=== PATIENT | female | born 1935 | race Caucasian/White ===

== ENCOUNTER 2018-02-13 08:22 | Inpatient (IN) | payer MEDICARE ==
[~2018-02-13] VITALS: Ht 162.6 cm; Wt 85.7 kg
[2018-02-13] MEDS ORDERED: SODIUM CHLORIDE 0.9% 1000ML 1,000 ML IV SCH (08:25)
[2018-02-13] MEDS ORDERED: IPRATROPIUM BROMIDE 0.02% 2.5 ML NEB NEB STA (08:25)
[2018-02-13] MEDS ORDERED: ALBUTEROL SULF 0.083% NEB SOLN 3 ML NEB NEB STA (08:25)
--- OUTSIDE RECORDS SUMMARY | 2018-02-13 08:25 | XMS REPORT | Summary of Care ---
Author Organization Unknown Address Unknown Phone Unavailable Encounter HQ Encntr_umesh(FIN) [id number] Date(s): 03/28/14 - 03/28/14 [facility] [address] Discharge Disposition: ED Registered In Error Physician Attending: Harris Davey MD Reason for Visit Elevated blood pressure Problem List Condition Effective Dates Status Health Status Informant HTN Active (hypertension)(Confi rmed) Pulmonary Resolved embolism(Confirmed) Allergies, Adverse Reactions, Alerts Substance Reaction Severity Status sulfa drugs Active Medications No data available for this section Medications Administered During Your Visit No data available for this section Immunizations No data available for this section Social History Social History Type Response Smoking Status Never smoker, Exposure to Tobacco Smoke None, Cigarette Smoking Last 365 Days No, Reg Smoking Cessation Counseling No
--- OUTSIDE RECORDS SUMMARY | 2018-02-13 08:25 | XMS REPORT | Summary of Care ---
Author Organization Unknown Address Unknown Phone Unavailable Encounter HQ Linkr_umesh(BINDU) [id number] Date(s): 02/28/14 - 02/28/14 [facility] [address] Discharge Disposition: Home Physician Attending: Fernando Estrada MD Physician_Referring: Fernando sEtrada MD Reason for Visit SPLIT [id number] Problem List No data available for this section Allergies, Adverse Reactions, Alerts No data available for this section Medications No data available for this section Medications Administered During Your Visit No data available for this section Immunizations No data available for this section
--- OUTSIDE RECORDS SUMMARY | 2018-02-13 08:25 | XMS REPORT | Summary of Care ---
Author Organization Unknown Address Unknown Phone Unavailable Encounter HQ Encntr_alitony(FIN) [id number] Date(s): 06/13/14 - 06/13/14 [facility] [address] [place] [address] Discharge Disposition: Home Physician Attending: Fernando Estrada MD Physician_Referring: Fernando Estrada MD Vital Signs No data available for this section Problem List Condition Effective Dates Status Health Status Informant HTN Active (hypertension)(Confi rmed) Pulmonary Resolved embolism(Confirmed) Allergies, Adverse Reactions, Alerts Substance Reaction Severity Status sulfa drugs Active Medications No data available for this section Results No data available for this section Immunizations No data available for this section Procedures No data available for this section Social History Social History Type Response Smoking Status Never smoker; Exposure to Tobacco Smoke None; Cigarette Smoking Last 365 Days No; Reg Smoking Cessation Counseling No Assessment and Plan No data available for this section
--- OUTSIDE RECORDS SUMMARY | 2018-02-13 08:25 | XMS REPORT | Summary of Care ---
Author Organization Unknown Address Unknown Phone Unavailable Encounter HQ Encntr_alias(FIN) [id number] Date(s): 03/28/14 - 03/28/14 [facility] [address] Discharge Disposition: Home Physician Attending: Fernando Estrada MD Physician_Referring: Fernando Estrada MD Reason for Visit [id number] Problem List Condition Effective Dates Status Health [...]
--- OUTSIDE RECORDS SUMMARY | 2018-02-13 08:25 | XMS REPORT | Continuity of Care Document ---
Author Author [facility] Interface Address Unknown Phone Unavailable Problems Problem Status Onset Date Classification Date Reported Comments Source [id number] Active 06/05/2014 [facility] ELEVATED BLOOD PRESSURE Active 03/28/2014 [facility] Discharge Diagnosis: Hypertension 03/28/2014 03/31/2014 [facility] SPLIT [id number] Active 02/08/2014 [facility] 415.19 ACUTE PULMONARY EMBOLISM Active 12/14/2013 [facility] HTN (<span ID="[id number]</span>) Active Problem 06/15/2014 [facility] Pulmonary embolism Resolved Problem 06/15/2014 [facility] Medications Medication Details Route Status Patient Instructions Ordering Provider Order Date Source Metoprolol Tartrate 25 mg oral tablet 25 mg=1 tab, PO, Daily, Please hold this medication if your systolic BP is less than 160, # 30 tab, 0 Refill(s)Special Instructions: Please hold this medication if your systolic BP is less than 160 Active 03/29/2014 [facility] Metoprolol 5 mg, 5 mL, Route: IVP, Drug form: INJ, ONCE, Dosing Weight 101.818, kg, Priority: STAT, Start date: 03/28/14 23:51:00, Stop date: 03/28/14 23:51:00Notes: (Same as: Lopressor) Push over 2 minutes No Longer Active 03/29/2014 [facility] Nitroglycerin 0.4 mg, 1 tab, Route: SL, Drug form: TAB, Q5Min, Dosing Weight 101.818, kg, PRN Chest Pain, Start date: 03/28/14 23:41:00, Duration: 3 doses or times, Stop date: Limited # of timesNotes: (Same as:Nitroquick, Nitrostat) "Do Not Crush" Sublingual tablet No Longer Active 03/29/2014 [facility] aspirin 324 mg, 4 tab, Route: PO, Drug form: CHEWTAB, ONCE, Dosing Weight 101.818, kg, Priority: STAT, Start date: 03/28/14 23:41:00, Stop date: 03/28/14 23:41:00Notes: Take with food. No Longer Active 03/29/2014 [facility] Saline Flush 0.9% 10 mL, Route: IVP, Drug Form: INJ, Dosing Weight 101.818, kg, PRN, PRN Line Flush, Start date: 03/28/14 23:41:00, Duration: 30 day, Stop date: 04/27/14 23:40:00Notes: (Same as: BD Posiflush) No Longer Active 03/29/2014 [facility] Sodium Chloride 0.154 MEQ/ML Injectable Solution 1,000 mL, 1000 ml/hr, Infuse Over: 1 hr, Route: IV, 1,000, Drug form: INJ, ONCE, Priority: STAT, Dosing Weight 101.818 kg, Start date: 03/28/14 23:41:00, Duration: 1 doses or times, Stop date: 03/28/14 23:41:00 No Longer Active 03/29/2014 [facility] Allergies, Adverse Reactions, Alerts Substance Category Reaction Severity Reaction type Status Date Reported Comments Source sulfa drugs Assertion Drug allergy Active [facility] Immunizations Immunization Date Given Site Status Last Updated Comments Source Results Order Name Results Value Reference Range Date Interpretation Comments Source CARDIAC ENZYMES CK MB Index 2.5 0.0 - 2.5 03/29/2014 [facility] CARDIAC ENZYMES CK MB 4.5 ng/mL 0.5 - 3.6 03/29/2014 [facility] CARDIAC ENZYMES Total CK 177 unit/L 12 - 191 03/29/2014 [facility] CARDIAC ENZYMES Troponin-I null 0.00 - 0.40 03/29/2014 [facility] CHEM PANEL eGFR 82 mL/min/1.73m2 03/29/2014 1Result Comment: The eGFR is calculated using the CKD-EPI formula. In most young, healthy individuals the eGFR will be >90 mL/min/1.73m2. The eGFR declines with age. An eGFR of 60-89 may be normal in some populations, particularly the elderly, for whom the CKD-EPI formula has not been extensively validated. Use of the eGFR is not recommended in the following populations: Individuals with unstable creatinine concentrations, including patients and those with serious co-morbid conditions. Patients with extremes in muscle mass or diet. The data above are obtained from the National Kidney Disease Education Program (NKDEP) which additionally recommends that when the eGFR is used in patients with extremes of body mass index for purposes of drug dosing, the eGFR should be multiplied by the estimated BMI. [facility] CHEM PANEL AST 19 unit/L 0 - 37 03/29/2014 [facility] CHEM PANEL ALT 21 unit/L 0 - 65 03/29/2014 [facility] CHEM PANEL Alk Phos 71 unit/L 39 - 136 03/29/2014 [facility] CHEM PANEL Bili Total 0.5 mg/dL 0.2 - 1.3 03/29/2014 [facility] CHEM PANEL AGAP 9.7 meq/L 10.0 - 20.0 03/29/2014 [facility] CHEM PANEL Globulin 3.8 g/dL 2.0 - 4.0 03/29/2014 [facility] CHEM PANEL B/C Ratio 20 6 - 25 03/29/2014 [facility] CHEM PANEL A/G Ratio 1.0 0.7 - 1.6 03/29/2014 [facility] CHEM PANEL BUN 14 mg/dL 7 - 22 03/29/2014 [facility] CHEM PANEL Sodium Lvl 140 meq/L 135 - 145 03/29/2014 [facility] CHEM PANEL Chloride Lvl 106 meq/L 95 - 109 03/29/2014 [facility] CHEM PANEL Potassium Lvl 3.7 meq/L 3.5 - 5.1 03/29/2014 [facility] CHEM PANEL CO2 28 meq/L 24 - 32 03/29/2014 [facility] CHEM PANEL Albumin Lvl 3.7 g/dL 3.5 - 5.0 03/29/2014 [facility] CHEM PANEL Creatinine Lvl 0.7 mg/dL 0.5 - 1.4 03/29/2014 [facility] CHEM PANEL Total Protein 7.5 g/dL 6.4 - 8.4 03/29/2014 [facility] CHEM PANEL Calcium Lvl 9.6 mg/dL 8.5 - 10.5 03/29/2014 [facility] CHEM PANEL Glucose Lvl 88 mg/dL 70 - 99 03/29/2014 2Interpretive Data: Adult reference range values reflect the clinical guidelines of the [employer]. [facility] HEMATOLOGY Segs 55.6 % 45.0 - 75.0 03/29/2014 [facility] HEMATOLOGY Segs-Bands # 4.1 K/CMM 1.5 - 8.1 03/29/2014 [facility] HEMATOLOGY Lymphocytes # 2.5 K/CMM 1.0 - 5.5 03/29/2014 [facility] Monocytes 9.0 % 2.0 - 12.0 03/29/2014 [facility] Lymphocytes 32.8 % 20.0 - 40.0 03/29/2014 [facility] Monocytes # 0.7 K/CMM 0.0 - 0.8 03/29/2014 [facility] HEMATOLOGY Eosinophils # 0.1 K/CMM 0.0 - 0.5 03/29/2014 [facility] Basophils # 0.1 K/CMM 0.0 - 0.2 03/29/2014 [facility] Eosinophils 1.8 % 0.0 - 4.0 03/29/2014 [facility] Basophils 0.8 % 0.0 - 1.0 03/29/2014 [facility] Hct 45.9 % 36.0 - 48.0 03/29/2014 [facility] WBC 7.5 K/CMM 3.7 - 10.4 03/29/2014 [facility] RBC 4.75 M/CMM 4.20 - 5.40 03/29/2014 [facility] Hgb 15.4 g/dL 12.0 - 16.0 03/29/2014 [facility] MCV 96.7 fL 80.0 - 98.0 03/29/2014 [facility] Platelet 215 K/CMM 133 - 450 03/29/2014 [facility] MCH 32.5 pg 27.0 - 31.0 03/29/2014 [facility] MCHC 33.6 g/dL 32.0 - 36.0 03/29/2014 [facility] RDW 14.7 % 11.5 - 14.5 03/29/2014 [facility] MPV 8.7 fL 7.4 - 10.4 03/29/2014 [facility] Chest 1view Chest 1view EXAMINATION: Chest 1view CLINICAL HISTORY: Chest pain Since 12/18/2013, no important interval change has occurred. The lungs are clear of consolidation, pleural effusion, and pneumothorax. Mild bilateral basilar subsegmental atelectasis and scarring. Emphysema is suspected in the lung apices. The heart size remains mildly enlarged. SL:17 03/29/2014 - - Read by: Rj Sandoval MD Dictated Date/time: 03/29/14 00:03 Electronically Signed by: Rj Sandoval MD 03/29/14 00:04 FINAL REPORT [facility] Chest 2 views Chest 2 views HISTORY: Cough. Pulmonary embolism. Two views chest. No previous for comparison. IMPRESSION: Lungs are mildly hyperinflated. Consider underlying obstructive lung disease. Mild cardiomegaly without overt CHF. No pleural effusion or pneumothorax. SL:13 12/18/2013 - - Read by: Marcos Fink MD Dictated Date/time: 12/18/13 14:44 Electronically Signed by: Marcos Fink MD 12/18/13 14:44 FINAL REPORT [facility] Ext Lower Venous Doppler Bilat US Ext Lower Venous Doppler Bilat US HISTORY: Pulmonary embolism. Bilateral lower extremity venous Doppler ultrasound exam demonstrates normal compressibility and flow in the common femoral, superficial femoral and popliteal venous segments. Normal distal augmentation. IMPRESSION: No sonographic evidence for lower extremity DVT. SL:12/18/2013 - - Read by: Marcos Fink MD Dictated Date/time: 12/18/13 14:27 Electronically Signed by: Marcos Fink MD 12/18/13 14:28 FINAL REPORT [facility] Vital Signs Vital Sign Value Date Comments Source Heart Rate 55 03/29/2014 [facility] Respitory Rate 16 03/29/2014 [facility] Temperature Oral (F) 98.8 F 03/29/2014 [facility] Systolic (mm Hg) 175 03/29/2014 [facility] Diastolic (mm Hg) 92 03/29/2014 [facility] Respitory Rate 18 03/29/2014 [facility] Systolic (mm Hg) 206 03/29/2014 [facility] Heart Rate 71 03/29/2014 [facility] Diastolic (mm Hg) 99 03/29/2014 [facility] Temperature Oral (F) 99.7 F 03/29/2014 [facility] Heart Rate 80 03/29/2014 [facility] Respitory Rate 18 03/29/2014 [facility] Diastolic (mm Hg) 133 03/29/2014 [facility] Systolic (mm Hg) 258 03/29/2014 [facility] BMI Calculated 43.84 03/29/2014 [facility] Weight 101.818 03/29/2014 [facility] Height 152.4 cm 03/29/2014 [facility] Encounters Location Location Details Encounter Type Encounter Number Reason For Visit Attending Provider ADM Date DC Date Status Source [facility]patient [id number] Fernando Estrada 12/18/2013 12/19/2013 [facility] [id number] Fernando Estrada 03/01/2014 03/01/2014 [facility] Outpatient [id number] Fernando Estrada 03/29/2014 03/29/2014 [facility] [id number] Harris Davey 03/29/2014 03/29/2014 [facility] [id number] Harris Davey 03/29/2014 03/29/2014 [facility] Outpatient [id number] Fernando Estrada 06/14/2014 06/14/2014 [facility] Procedures Procedure Code Date Perfomer Comments Source
--- OUTSIDE RECORDS SUMMARY | 2018-02-13 08:25 | XMS REPORT | Summary of Care ---
Author Organization Unknown Address Unknown Phone Unavailable Encounter HQ Heribertontr_umesh(BINDU) [id number] Date(s): 12/18/13 - 12/18/13 [facility] [address] Discharge Disposition: Home Physician Attending: Fernando Estrada MD Physician_Referring: Fernando Estrada MD Reason for Visit 415.19 ACUTE PULMONARY EMBOLISM Problem List No data available for this section Allergies, Adverse Reactions, Alerts No data available for this section Medications No data available for this section Medications Administered During Your Visit No data available for this section Immunizations No data available for this section
--- OUTSIDE RECORDS SUMMARY | 2018-02-13 08:25 | XMS REPORT | Summary of Care ---
Author Organization Unknown Address Unknown Phone Unavailable Encounter HQ Godfrey(BINDU) [id number] Date(s): 03/28/14 - 03/29/14 [facility] [address] [address] - [facility] Discharge Diagnosis: Hypertension Discharge Disposition: Home Physician Attending: Harris Davey MD Reason for Visit ELEVATED BLOOD PRESSURE Vital Signs 1 2 3 Most recent to oldest [Reference Range]: 152.4 cm (03/28/14 10:50 PM) Height 98.8 DegF (03/29/14 1:40 AM) 99.7 DegF *HI* (03/28/14 10:50 PM) Temperature Oral [96.4-99.1 DegF] 175 mmHg *HI* (03/29/14 1:40 AM) 206 mmHg *HI* (03/29/14 12:54 AM) 258 mmHg *HI* (03/28/14 10:50 PM) Systolic Blood Pressure [90-140 mmHg] 92 mmHg *HI* (03/29/14 1:40 AM) 99 mmHg *HI* (03/29/14 12:54 AM) 133 mmHg *HI* (03/28/14 10:50 PM) Diastolic Blood Pressure [60-90 mmHg] 16 BRMIN (03/29/14 1:40 AM) 18 BRMIN (03/29/14 12:54 AM) 18 BRMIN (03/28/14 10:50 PM) Respiratory Rate [14-20 BRMIN] 55 bpm *LOW* (03/29/14 1:40 AM) 71 bpm (03/29/14 12:54 AM) 80 bpm (03/28/14 10:50 PM) Peripheral Pulse Rate [60-100 bpm] 101.818 kg (03/28/14 10:50 PM) Weight 43.84 m2 (03/28/14 10:50 PM) Body Mass Index Problem List Condition Effective Dates Status Health Status Informant HTN Active (hypertension)(Confi rmed) Pulmonary Resolved embolism(Confirmed) Allergies, Adverse Reactions, Alerts Substance Reaction Severity Status sulfa drugs Active Medications aspirin 324 mg, 4 tab, Route: PO, Drug form: CHEWTAB, ONCE, Dosing Weight 101.818, kg, P riority: STAT, Start date: 03/28/14 23:41:00, Stop date: 03/28/14 23:41:00 Notes: Take with food. Start Date: 03/28/14 Stop Date: 03/29/14 Status: Completed metoprolol 5 mg/5 ml INJ 5 mg, 5 mL, Route: IVP, Drug form: INJ, ONCE, Dosing Weight 101.818, kg, Priorit y: STAT, Start date: 03/28/14 23:51:00, Stop date: 03/28/14 23:51:00 Notes: (Same as: Lopressor)Push over 2 minutes Start Date: 03/28/14 Stop Date: 03/29/14 Status: Completed Metoprolol Tartrate 25 mg oral tablet 25 mg=1 tab, PO, Daily, Please hold this medication if your systolic BP is less than 160, # 30 tab, 0 Refill(s) Special Instructions: Please hold this medication if your systolic BP is less th an 160 Start Date: 03/28/14 Status: Ordered nitroglycerin 0.4 mg, 1 tab, Route: SL, Drug form: TAB, Q5Min, Dosing Weight 101.818, kg, PRN Chest Pain, Start date: 03/28/14 23:41:00, Duration: 3 doses or times, Stop date : Limited # of times Notes: (Same as:Nitroquick, Nitrostat)"Do Not Crush" Sublingual tablet Start Date: 03/28/14 Stop Date: 03/29/14 Status: Discontinued Saline Flush 0.9% 10 mL, Route: IVP, Drug Form: INJ, Dosing Weight 101.818, kg, PRN, PRN Line Flus h, Start date: 03/28/14 23:41:00, Duration: 30 day, Stop date: 04/27/14 23:40:00 Notes: (Same as: BD Posiflush) Start Date: 03/28/14 Stop Date: 03/29/14 Status: Discontinued Sodium Chloride 0.9% (Bolus) IV 1,000 mL, 1000 ml/hr, Infuse Over: 1 hr, Route: IV, 1,000, Drug form: INJ, ONCE, Priority: STAT, Dosing Weight 101.818 kg, Start date: 03/28/14 23:41:00, Durati on: 1 doses or times, Stop date: 03/28/14 23:41:00 Start Date: 03/28/14 Stop Date: 03/29/14 Status: Completed Results ELECTROLYTES Most recent to 1 oldest [Reference Range]: Sodium Lvl [135-145 140 mEq/L mEq/L] (03/29/14 12:00 AM) Potassium Lvl 3.7 mEq/L [3.5-5.1 mEq/L] (03/29/14 12:00 AM) Chloride Lvl [95-109 106 mEq/L mEq/L] (03/29/14 12:00 AM) CO2 [24-32 mEq/L] 28 mEq/L (03/29/14 12:00 AM) AGAP [10.0-20.0 9.7 mEq/L mEq/L] *LOW* (03/29/14 12:00 AM) CHEM PANEL Most recent to 1 oldest [Reference Range]: Creatinine Lvl 0.7 mg/dL [0.5-1.4 mg/dL] (03/29/14 12:00 AM) eGFR 82 mL/min/1.73m2 1 *NA* (03/29/14 12:00 AM) BUN [7-22 mg/dL] 14 mg/dL (03/29/14 12:00 AM) B/C Ratio [6-25] 20 (03/29/14 12:00 AM) Glucose Lvl [70-99 88 mg/dL 2 mg/dL] (03/29/14 12:00 AM) Total Protein 7.5 g/dL [6.4-8.4 g/dL] (03/29/14 12:00 AM) Albumin Lvl [3.5-5.0 3.7 g/dL g/dL] (03/29/14 12:00 AM) Globulin [2.0-4.0 3.8 g/dL g/dL] (03/29/14 12:00 AM) A/G Ratio [0.7-1.6] 1.0 (03/29/14 12:00 AM) Calcium Lvl 9.6 mg/dL [8.5-10.5 mg/dL] (03/29/14 12:00 AM) ALT [0-65 unit/L] 21 unit/L (03/29/14 12:00 AM) AST [0-37 unit/L] 19 unit/L (03/29/14 12:00 AM) Alk Phos [39-136 71 unit/L unit/L] (03/29/14 12:00 AM) Bili Total [0.2-1.3 0.5 mg/dL mg/dL] (03/29/14 12:00 AM) 1Result Comment: The eGFR is calculated using [...] from the National Kidney Disease Education Program ( NKDEP) which additionally recommends that when the eGFR is used in patients with extremes of body mass index for purposes of drug dosing, the eGFR should be mul tiplied by the estimated BMI. 2Interpretive Data: Adult reference range values reflect the clinical guidelines of the [place] [employer]. CARDIAC ENZYMES Most recent to 1 oldest [Reference Range]: Total CK [12-191 177 unit/L unit/L] (03/29/14 12:00 AM) CK MB [0.5-3.6 4.5 ng/mL ng/mL] *HI* (03/29/14 12:00 AM) CK MB Index 2.5 [0.0-2.5] (03/29/14 12:00 AM) Troponin-I <0.02 ng/mL [0.00-0.40 ng/mL] (03/29/14 12:00 AM) HEMATOLOGY Most recent to 1 oldest [Reference Range]: WBC [3.7-10.4 K/CMM] 7.5 K/CMM (03/29/14 12:00 AM) RBC [4.20-5.40 4.75 M/CMM M/CMM] (03/29/14 12:00 AM) Hgb [12.0-16.0 g/dL] 15.4 g/dL (03/29/14 12:00 AM) Hct [36.0-48.0 %] 45.9 % (03/29/14 12:00 AM) MCV [80.0-98.0 fL] 96.7 fL (03/29/14 12:00 AM) MCH [27.0-31.0 pg] 32.5 pg *HI* (03/29/14 12:00 AM) MCHC [32.0-36.0 33.6 g/dL g/dL] (03/29/14 12:00 AM) RDW [11.5-14.5 %] 14.7 % *HI* (03/29/14 12:00 AM) Platelet [133-450 215 K/CMM K/CMM] (03/29/14 12:00 AM) MPV [7.4-10.4 fL] 8.7 fL (03/29/14 12:00 AM) Segs [45.0-75.0 %] 55.6 % (03/29/14 12:00 AM) Lymphocytes 32.8 % [20.0-40.0 %] (03/29/14 12:00 AM) Monocytes [2.0-12.0 9.0 % %] (03/29/14 12:00 AM) Eosinophils [0.0-4.0 1.8 % %] (03/29/14 12:00 AM) Basophils [0.0-1.0 0.8 % %] (03/29/14 12:00 AM) Segs-Bands # 4.1 K/CMM [1.5-8.1 K/CMM] (03/29/14 12:00 AM) Lymphocytes # 2.5 K/CMM [1.0-5.5 K/CMM] (03/29/14 12:00 AM) Monocytes # [0.0-0.8 0.7 K/CMM K/CMM] (03/29/14 12:00 AM) Eosinophils # 0.1 K/CMM [0.0-0.5 K/CMM] (03/29/14 12:00 AM) Basophils # [0.0-0.2 0.1 K/CMM K/CMM] (03/29/14 12:00 AM) Medications Administered During Your Visit No data available for this section Immunizations No data available for this section Social History Social History Type Response Smoking Status Never smoker, Exposure to Tobacco Smoke None, Cigarette Smoking Last 365 Days No, Reg Smoking Cessation Counseling No
[2018-02-13] MEDS ORDERED: ONDANSETRON HCL INJ 2 MG/ML VIAL IV PRN ×3 (08:30→13:15)
[2018-02-13] MEDS ORDERED: CEFEPIME HCL 2 GM VIAL IV ONE (09:00)
[2018-02-13] MEDS ORDERED: FAMOTIDINE 20 MG/2 ML VIAL IV ONE (09:00)
[2018-02-13 09:10] LABS: ABG PH 7.43 (7.31-7.41)
[2018-02-13 09:11] LABS: ABG PCO2 37 mmHg (41-51)
[2018-02-13 09:12] LABS: ABG HCO3 25 mmol/L (23-28); ABG PO2 45 mmHg (80-105)
[2018-02-13 09:26] LABS: BASOPHILS % 0.2 % (0.0-1.0); EOSINOPHILS # (AUTO) 0.1 (0.0-0.4); EOSINOPHILS % 0.4 % (0.0-6.0); HEMATOCRIT 43.7 % (34.2-44.1); HEMOGLOBIN 14.5 g/dL (12.0-16.0); LYMPHOCYTES # (AUTO) 1.1 (1.0-3.2); LYMPHOCYTES % 9.1 % (18.0-39.1); MEAN CORPUSCULAR HEMOGLOBIN 31.7 pg (28-32); MEAN CORPUSCULAR HGB CONC 33.2 g/dL (31-35); MEAN CORPUSCULAR VOLUME 95.4 fL (81-99); MONOCYTES # (AUTO) 1.4 (0.2-0.8); MONOCYTES % 11.4 % (4.4-11.3); NEUTROPHILS # (AUTO) 9.7 (2.1-6.9); NEUTROPHILS % 78.4 % (38.7-80.0); PLATELET COUNT 167 x10e3/uL (140-360); RED BLOOD COUNT 4.58 x10e6/uL (3.6-5.1); RED CELL DISTRIBUTION WIDTH 15.5 % (11.7-14.4)
--- NOTE | 2018-02-13 09:37 | Diagnostic Imaging Report ---
Examination: Single AP view of the chest. COMPARISON: None. INDICATION: Shortness of breath, small IMPRESSION: 1. Lines and Tubes: None 2. Lungs are well-inflated. Mild bilateral perihilar interstitial opacities, likely reflecting mild interstitial edema. Patchy opacity in the left mid to lower left lung, which may reflect atelectasis or less likely a contusion. 3. Cardiomediastinal silhouette is normal. Central pulmonary venous congestion. 4. No acute bony abnormalities in this limited view.. Signed by: Dr. Juan Cota M.D. on 02/13/2018 9:34 AM
[2018-02-13 09:43] LABS: ALBUMIN 2.6 g/dL (3.5-5.0); ALBUMIN/GLOBULIN RATIO 0.6 (0.8-2.0); ANION GAP 13.9 mmol/L (8-16); CALCIUM 10.4 mg/dL (8.4-10.2); CREATININE, SERUM 1.03 mg/dL (0.57-1.11); POTASSIUM 3.9 mmol/L (3.5-5.1)
[2018-02-13 10:23] LABS: CLARITY,URINE TURBID (CLEAR); COLOR,URINE BROWN (YELLOW); LEUKOCYTE ESTERASE ,URINE 2+ (NEGATIVE)
[2018-02-13 10:24] LABS: BACTERIA,URINE MODERATE /HPF; BILIRUBIN,URINE 2+ (NEGATIVE); KETONES,URINE TRACE (NEGATIVE); NITRITE,URINE POSITIVE (NEGATIVE); PROTEIN,URINE DIPSTICK 3+ (NEGATIVE); RBC,URINE >50 /HPF (0-5); URINE UROBILINOGEN 1 mg/dL (0.2 - 1); WBC,URINE (MAN) >50 /HPF (0-5)
[2018-02-13 10:25] LABS: AMORPHOUS SEDIMENT,URINE MODERATE (FEW); EPITHELIAL CELLS,URINE FEW /LPF
[2018-02-13] MEDS ORDERED: SODIUM CHLORIDE 0.9% 100 ML 100 ML ONE ×2 (10:48→14:09)
[2018-02-13] MEDS ORDERED: IOPAMIDOL 370 MG/ML 200 ML INFUS..BTL INJ ONE ×3 (10:49→22:52)
[2018-02-13] MEDS ORDERED: OCUVITE SOFTGE1 EACH PO (11:05)
[2018-02-13] MEDS ORDERED: VITAMIN B-121000 MCG PO (11:05)
[2018-02-13] MEDS ORDERED: COQ-10100 MG PO (11:05)
[2018-02-13] MEDS ORDERED: ASPIR 8181 MG PO (11:05)
[2018-02-13] MEDS ORDERED: HYDRALAZINE HCL25 MG PO (11:05)
[2018-02-13] MEDS ORDERED: LOSARTAN POTASS25 MG PO (11:05)
[2018-02-13] MEDS ORDERED: HAIR, SKIN & N1 EACH PO (11:05)
[2018-02-13] MEDS ORDERED: ZETIA10 MG PO (11:05)
[2018-02-13] MEDS ORDERED: CENTRUM COMPLE1 EACH PO (11:05)
--- NOTE | 2018-02-13 12:53 | Diagnostic Imaging Report ---
EXAMINATION: CT of the chest with contrast, PE protocol. TECHNIQUE: Spiral CT images of the chest were performed from the lung apices through the level of the adrenal glands after the IV administration of 100 cc of Isovue 370. Thin section reconstructions were obtained with special concentration on the pulmonary arteries. Coronal and sagittal reformatted images were obtained. COMPARISON: <none> CLINICAL HISTORY:Decreased O2 saturation DISCUSSION: Exam limited by breathing motion artifact. Lungs: No filling defects are identified in the main, right or left pulmonary arteries to their segmental levels, to suggest pulmonary embolism. Mild bilateral upper lobe centrilobular emphysematous changes. Linear opacities in bilateral lower lobes, lingula and inferior right middle lobe likely represent subsegmental atelectasis or scarring. Mild increased attenuation/ground glass opacities in the central aspect of the upper lobes (coronal image 38). No consolidation or masses. No nodules. Airways: Airways are clear, without endobronchial lesions. Pleura: <There is no evidence of pleural effusion or pneumothorax.> Heart and mediastinum: Moderate cardiomegaly. Atherosclerotic calcification of the coronary arteries and thoracic aorta. The aorta is nonaneurysmal. Main pulmonary artery is enlarged, measuring 3.2 cm. Lymph nodes: No mediastinal, hilar or axillary adenopathy. Abdomen: The visualized portions of the liver, spleen and left kidney are unremarkable. Fused thickening of the adrenal glands, without focal lesions. Reflux of contrast into the IVC and hepatic veins. Bones and soft tissues: No aggressive lytic lesions. Generalized osteopenia. Multilevel degenerative disc changes in the thoracic spine. Age indeterminate anterior wedge deformity of the T5 vertebral body (sagittal image 58). Soft tissues are unremarkable. IMPRESSION: 1. No CT evidence of pulmonary embolism. 2. Mild increased attenuation/ground glass opacity in the central aspect of the upper lobes. This may reflect interstitial edema in the setting of moderate cardiomegaly and pulmonary hypertension. A relatively, interstitial lung disease is also considered, given the emphysematous changes. 3. Bilateral lower lobe, lingula and right middle lobe scarring versus subsegmental atelectasis. No consolidation. 4. Reflux of contrast into the IVC and hepatic veins suggesting right ventricular dysfunction. 5. Enlarged main pulmonary artery, suggesting pulmonary hypertension. Signed by: Dr. Juan Cota M.D. on 02/13/2018 12:50 PM
[2018-02-13] MEDS ORDERED: CEFEPIME HCL 2 GM VIAL IV SCH (13:15)
[2018-02-13] MEDS ORDERED: ACETAMINOPHEN 325 MG TAB PO PRN (13:15)
[2018-02-13] MEDS ORDERED: DIPHENHYDRAMINE HCL INJ 50 MG/ML VIAL IV PRN (13:15)
[2018-02-13] MEDS ORDERED: MORPHINE SULFATE 2 MG/ML SYR IV PRN (13:15)
[2018-02-13] MEDS ORDERED: SODIUM CHLORIDE FLUSH 10 ML SYR INJ PRN ×2 (13:15)
[2018-02-13] MEDS ORDERED: ENOXAPARIN SODIUM INJ 100 MG/ML SYR SC SCH (13:15)
[2018-02-13] MEDS ORDERED: ALBUTEROL/IPRATROPIUM 3 ML NEB NEB PRN (13:15)
[2018-02-13] MEDS ORDERED: ENALAPRILAT IV INJ 1.25 MG/ML VIAL IV PRN (13:15)
[2018-02-13] MEDS ORDERED: IBUPROFEN 200 MG TAB PO PRN (13:15)
--- OUTSIDE RECORDS SUMMARY | 2018-02-13 13:36 | XMS REPORT ---
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 Allergies, Adverse Reactions, Alerts This patient has no known allergies or adverse reactions. Medications This patient has no known medications. Results Test Description Test Time Test Comments Text Results Atomic Results Result Comments CT CHEST W 2018-02-13 12:42:00 [facility] [address] [place] [address] Patient Name: YUMIKO GRANDA MR #: [id number] : 1935 Age/Sex: 82/F Req #: [id number] Adm Physician: Ordered by: MANNY SOTOMAYOR MD Report #: [id number] Location: ER Room/Bed: Procedure: [id number] CT/CT CHEST W Exam Date: 02/13/18 Exam Time: 1103 REPORT STATUS: Signed EXAMINATION: CT of the chest with contrast, PE protocol. Dwayne HURST: Spiral CT images of the chest were performed from the lung apices through the level of the adrenal glands after the IV administration of 100 cc of Isovue 370. Thin section reconstructions were obtained with special concentration on the pulmonary arteries. Coronal and sagittal reformatted images were obtained. COMPARISON: <none> CLINICAL HISTORY:Decreased O2 saturation DISCUSSION: Exam limited by breathing motion artifact. Lungs: No filling defects are identified in the main, right or left pulmonary arteries to their segmental levels, to suggest pulmonary embolism. Mild bilateral upper lobe centrilobular emphysematous changes. Linear opacities in bilateral lower lobes, lingula and inferior right middle lobe likely represent subsegmental atelectasis or scarring. Mild increased attenuation/ground glass opacities in the central aspect of the upper lobes (coronal image 38). No consolidation or masses. No nodules. Airways: Airways are clear, without endobronchial lesions. Pleura: <There is no evidence of pleural effusion or pneumothorax.> Heart and mediastinum: Moderate cardiomegaly. Atherosclerotic calcification of the coronary arteries and thoracic aorta. The aorta is nonaneurysmal. Main pulmonary artery is enlarged, measuring 3.2 cm. Lymph nodes: No mediastinal, hilar or axillary adenopathy. Abdomen: The visualized portions of the liver, spleen and left kidney are unremarkable. Fused thickening of the adrenal glands, without focal lesions. Reflux of contrast into the IVC and hepatic veins. Bones and soft tissues: No aggressive lytic lesions. Generalized osteopenia. Multilevel degenerative disc changes in the thoracic spine. Age indeterminate anterior wedge deformity of the T5 vertebral body (sagittal image 58). Soft tissues are unremarkable. IMPRESSION: 1. No CT evidence of pulmonary embolism. 2. Mild increased attenuation/ground glass opacity in the central aspect of the upper lobes. This may reflect interstitial edema in the setting of moderate cardiomegaly and pulmonary hypertension. A relatively, interstitial lung disease is also considered, given the emphysematous changes. 3. Bilateral lower lobe, lingula and right middle lobe scarring versus subsegmental atelectasis. No consolidation. 4. Reflux of contrast into the IVC and hepa tic veins suggesting right ventricular dysfunction. 5. Enlarged main pulmonary artery, suggesting pulmonary hypertension. Signed by: Dr. Devante Cota M.D. on 02/13/2018 12:50 PM Dictated By: DEVANTE COTA MD 1250 Transcribed By: JACKIE on 02/13/18 1250 COPY TO: MANNY SOTOMAYOR MD CHEST SINGLE (PORTABLE) 2018-02-13 09:33:00 [place] [address] Patient Name: YUMIKO GRANDA MR #: [id number] : 1935 Age/Sex: 82/F Req #: [id number] [facility] Physician: Ordered by: MANNY SOTOMAYOR MD Report #: [id number] Location: Room/Bed: Procedure: [id number] DX/CHEST SINGLE (PORTABLE) Exam Date: 02/13/18 Exam Time: 0853 REPORT STATUS: Signed Examination: Single AP view of the chest. COM PARISON: None. INDICATION: Shortness of breath, small IMPRESSION: 1. Lines and Tubes: None 2. Lungs are well-inflated. Mild bilateral perihilar interstitial opacities, likely reflecting mild interstitial edema. Patchy opacity in the left mid to lower left lung, which may reflect atelectasis or less likely a contusion. 3. Cardiomediastinal silhouette is normal. Central pulmonary venous congestion. 4. No acute bony abnormalities in this limited view.. Signed by: Dr. Devante Cota M.D. on 02/13/2018 9:34 AM Dictated By: DEVANTE COTA MD 3 Transcribed By: JACKIE on 02/13/18933 COPY TO: MANNY SOTOMAYOR MD
[2018-02-13] MEDS: METOPROLOL TARTRATE 25 MG TAB PO SCH (14:47)
[2018-02-13] MEDS: FAMOTIDINE 20 MG/2 ML VIAL IV SCH (14:53)
[2018-02-13] MEDS ORDERED: ASPIRIN 81 MG CHEW TAB PO ONE (15:00)
[2018-02-13] MEDS ORDERED: FUROSEMIDE INJ 10 MG/ML 4 ML VIAL IV ONE (15:00)
[2018-02-13 19:12] LABS: CREATINE KINASE MB 3.3 ng/mL (0-5.0)
[2018-02-13] MEDS: FUROSEMIDE INJ 10 MG/ML 4 ML VIAL IV SCH (19:30)
[2018-02-13] MEDS: CEFEPIME HCL 2 GM VIAL IV SCH (22:52)
[2018-02-14] MEDS: METOPROLOL TARTRATE 25 MG TAB PO SCH ×2 (02:55→15:13)
[2018-02-14 08:20] LABS: BASOPHILS % 0.3 % (0.0-1.0); EOSINOPHILS % 0.3 % (0.0-6.0); HEMATOCRIT 41.6 % (34.2-44.1); HEMOGLOBIN 13.7 g/dL (12.0-16.0); LYMPHOCYTES # (AUTO) 0.8 (1.0-3.2); LYMPHOCYTES % 5.5 % (18.0-39.1); MEAN CORPUSCULAR HEMOGLOBIN 31.6 pg (28-32); MEAN CORPUSCULAR HGB CONC 32.9 g/dL (31-35); MEAN CORPUSCULAR VOLUME 95.9 fL (81-99); MONOCYTES # (AUTO) 1.1 (0.2-0.8); MONOCYTES % 8.1 % (4.4-11.3); NEUTROPHILS # (AUTO) 11.6 (2.1-6.9); NEUTROPHILS % 84.1 % (38.7-80.0); RED BLOOD COUNT 4.34 x10e6/uL (3.6-5.1); RED CELL DISTRIBUTION WIDTH 15.4 % (11.7-14.4)
[2018-02-14 08:30] LABS: PLATELET COUNT 189 x10e3/uL (140-360)
[2018-02-14 08:35] LABS: ANION GAP 11.6 mmol/L (8-16); BLOOD UREA NITROGEN 37 mg/dL (7-26); BUN/CREATININE RATIO 46 (6-25); CARBON DIOXIDE 29 mmol/L (22-29); CHLORIDE 102 mmol/L (98-107); CREATININE, SERUM 0.81 mg/dL (0.57-1.11); EST GLOMERULAR FILTRATION RATE > 60 ML/MIN (60-); GLUCOSE 113 mg/dL (74-118); POTASSIUM 3.6 mmol/L (3.5-5.1); SODIUM 139 mmol/L (136-145)
[2018-02-14 08:50] LABS: CALCIUM 9.6 mg/dL (8.4-10.2)
[2018-02-14] MEDS: ENOXAPARIN SOD INJ 40 MG/0.4 ML SYR SC SCH (09:29)
[2018-02-14] MEDS: FAMOTIDINE 20 MG/2 ML VIAL IV SCH ×2 (09:29→17:54)
[2018-02-14] MEDS: FUROSEMIDE INJ 10 MG/ML 4 ML VIAL IV SCH (09:29)
[2018-02-14] MEDS: CEFEPIME HCL 2 GM VIAL IV SCH ×2 (09:31→21:44)
--- NOTE | 2018-02-14 10:19 | History and Physical ---
Ms. Zurita is an 82-year-old female with a history of hypertension and back pain that was brought to the emergency room yesterday. She is not very clear. She is a little confused. She is not very clear why she is in the emergency room. She thinks it is because she fell again. That is what she said. She was brought to the emergency room. PAST MEDICAL HISTORY: She has a history of hypertension and back pain. SOCIAL HISTORY: She does not smoke and she does not drink. ALLERGIES: NO KNOWN DRUG ALLERGIES. PAST SURGICAL HISTORY: She denies having any surgeries. PHYSICAL EXAMINATION GENERAL: She is awake. She is alert, but she is a little confused. She did not know she was at the hospital. VITALS: Temperature is 98, blood pressure 127/80. HEART: Regular rate. LUNGS: Clear to auscultation. ABDOMEN: Distended and soft. EXTREMITIES: No edema and no erythema. BLOOD WORK: White count is 13.78, hemoglobin is 13.7 and hematocrit 41.6. Potassium 3.6, creatinine 0.81, glucose 113. First set of cardiac enzymes negative. BNP is 1092. Urine shows more than 50 white blood cells. Influenza was negative. CT of the lung shows no evidence of pulmonary embolus, some interstitial edema with cardiomegaly and pulmonary hypertension, atelectasis, and pulmonary hypertension. PLAN: At the present time, is to admit the patient to the hospital with acute hypoxemic respiratory failure, CHF, changes in mental status, recurrent falls, probably UTI. We are going to get a neurology consult with Dr. Fisher. Cardiology consult Dr. Pagan. She is on cefepime 2 g IV every 12 hours. Continue IV antibiotics. We are going to continue to monitor culture results. Continue Lasix IV twice a day. Will admit her to the floor once we have a bed available. All of this was discussed with the patient. All questions were answered to satisfaction. Continue DVT and ulcer prophylaxis. Job#: [id number] BENJAMIN
[2018-02-14 10:31] LABS: CREATINE KINASE MB 2.2 ng/mL (0-5.0)
--- NOTE | 2018-02-14 10:52 | Consultation ---
DATE OF CONSULTATION: February 14, 2018 CARDIOLOGY CONSULTATION REASON FOR CONSULTATION: Chest pain. CONSULTING PHYSICIAN: Dr. Bustos HPI: This is an 82-year-old female that presented status post fall. According to the medical record, she was found with decreased mentation and shortness of breath. She was brought to the emergency room for evaluation. She has a history of dementia, and not able to verbalize any need or follow any command. She was found with BNP at 1092. Cardiology was consulted for CHF. She had chest x-ray done that showed patchy opacities on the left mid to the left lower lung. She also had a CT of chest done that showed no PE. Possible pulmonary hypertension. Troponin was borderline and EKG showed no S/T abnormalities. PAST MEDICAL HISTORY: Dementia, hypertension, hyperlipidemia and back pain. PAST SURGICAL HISTORY: Unknown. FAMILY HISTORY: Noncontributory. SOCIAL HISTORY: No smoking. No drinking. She lives at home with family. MEDICATIONS: See med list. ALLERGIES: SHE IS NOT ALLERGIC TO ANY MEDICATION. REVIEW OF SYSTEMS: Unable to obtain due to dementia. PHYSICAL EXAMINATION VITAL SIGNS: Temperature 97, heart rate 76, blood pressure 128/74, respirations 20, oxygen saturation 95% on 2 L nasal cannula. GENERAL: She is awake and alert, but confused. HEENT: Mucous membranes moist. NECK: Supple. LUNGS: Bilateral with decreased breath sounds. CARDIOVASCULAR: S1 and S2 present. ABDOMEN: Soft. NEUROLOGICAL: She is able to move extremities, but not able to verbalize any need. EXTREMITIES: Bilateral lower extremities with trace edema. LABS: Sodium 139, potassium 3.6, chloride 102, CO2 29, BUN 37, creatinine 0.81, glucose 113. White blood cells 13.7, hemoglobin 13, hematocrit 41.6, and platelets 189,000. IMPRESSION 1. Congestive heart failure, type unknown. 2. Urinary tract infection. 3. Dementia/altered mental status. 4. Borderline TROPONIN 5. Status post fall. 6. History of hypertension. 7. History of hyperlipidemia. 8. Hypoxemia. ASSESSMENT AND PLAN: She is pending an echocardiogram to assess the LV and the valve function. Due to the history of fall, will go ahead and get a bilateral carotid Doppler to rule out any occlusion. Will go ahead and continue diuretics, beta joanne and DEVON inhibitor. Further cardiac workup pending clinical cause. Thank you for the consultation. DICTATED BY JEREMIAH CRAFT NP Job#: [id number] BENJAMIN BROUSSARD
[2018-02-14 20:39] VITALS: BP 127/68
--- NOTE | 2018-02-14 22:03 | Consultation ---
DATE OF CONSULTATION: February 14, 2018 HISTORY OF PRESENT ILLNESS: Unfortunately, Ms. Zurita is severely encephalopathic. She is unable to provide any medical history. There are no family members available at bedside. Therefore, history is obtained from review of the electronic medical records. On the evening of February 13, 2018, the patient presented to the emergency center at [facility] status post fall with confusion and shortness of breath. Upon arrival in the emergency center, the patient was afebrile with a blood pressure 128/76 mmHg, a pulse of 96 beats per minute, a respiratory rate 20 breaths per minute, and a pulse oximetry of 80% on room air. Ms. Zurita's neurological examination was significant for a decreased level of alertness. Otherwise, the patient was reported to be oriented x3. No focal deficits were noted on her neurological examination. Initial laboratory data revealed the patient to be dehydrated. The CBC with differential and platelets revealed an elevated white blood cell count with a left shift. Ms. Zurita was found to be hypoxemic on an arterial blood gas. Findings on her urinalysis were highly suggestive of a urinary tract infection. While in the emergency center, the patient underwent an electrocardiogram, which revealed a normal sinus rhythm at 96 beats per minute with a left axis deviation. A chest x-ray was performed in the emergency center. There is no evidence of consolidation on the chest x-ray. However, there were findings suggestive of mild interstitial edema. A CT of the chest with contrast, PE protocol was performed as well. This study did not reveal a pulmonary embolus. Due to every unit in the hospital being at full capacity, Ms. Zurita remains in the emergency center. She has been admitted to [facility] as an inpatient and is awaiting an available floor bed. As stated above, Ms. Zurita was confused upon admission to the emergency center. Therefore, a neurology consultation was requested for further evaluation. REVIEW OF SYSTEMS: Unable to assess secondary to the patient being severely encephalopathic. PAST MEDICAL HISTORY: Hypertension, dyslipidemia, chronic back pain, and dementia. PAST SURGICAL HISTORY: Unknown. According to Dr. Bustos's note, the patient denied any prior surgical procedures. PAST HOSPITALIZATIONS: Unknown. FAMILY MEDICAL HISTORY: Unknown. According to the patient's demographic information, Ms. Zurita is a . She reportedly lives with family. The patient is retired. There is no documentation of current or prior tobacco, alcohol or recreational drug use. HOME MEDICATIONS 1. Aspirin 81 mg by mouth daily. 2. Vitamin B12 1000 mcg by mouth daily. 3. Zetia 10 mg by mouth daily. 4. Hydralazine 25 mg by mouth 3 times daily with meals. 5. Losartan 50 mg by mouth daily. 6. Multivitamin 1 tablet by mouth daily. 7. Coenzyme Q10 and 100 mg by mouth daily. 8. Ocuvite 2 capsules by mouth daily. ALLERGIES: NO KNOWN DRUG ALLERGIES. NO KNOWN FOOD ALLERGIES. NO KNOWN ALLERGIES TO LATEX. NO KNOWN ALLERGIES TO IODINE OR OTHER CONTRAST MATERIALS. PHYSICAL EXAMINATION VITAL SIGNS: Height 64 inches, weight 194 pounds, BMI 33.3 kg per meter squared, blood pressure 124/78 mmHg, pulse 81 beats per minute, respiratory rate 18 breaths per minute, oxygen saturation 99% on 5 L by nasal cannula. GENERAL: The patient is sleeping. Ms. Zurita is difficult to arouse and requires repeated verbal stimulation before she awakens. Obese. HEENT: Normocephalic, atraumatic. Pupils cannot be adequately assessed. Dry mucous membranes. NECK: Supple. No appreciable thyromegaly. No appreciable carotid bruits. CARDIOVASCULAR: S1, S2. Regular rate and rhythm. No murmurs, rubs or gallops. RESPIRATORY: Clear to auscultation bilaterally. No wheezes, rhonchi or rales. EXTREMITIES: The skin is warm and dry. No clubbing, cyanosis or edema. The posterior tibial and dorsalis pedis pulses are 1+ and symmetric. SKIN: No rashes or lesions. NEUROLOGIC Memory/Attention: The patient is sleeping. She arouses after repeated verbal stimulation. Ms. Zurita is not oriented to person, place, time or situation. Cranial Nerves: Cranial nerve I--not tested. Cranial. Cranial nerve II, III, IV, and --Pupils cannot be adequately assessed. Extraocular movements cannot be adequately assessed. There is no nystagmus. Cranial nerve VII--the face appears to be symmetric as are all facial movements. Cranial nerve VII--hearing is grossly intact to voice bilaterally. Cranial nerve IX, X--the soft palate elevates equally and symmetrically. Cranial nerve XII--the tongue protrudes midline and moves symmetrically from side to side. Strength: Bulk is normal. Ms. Zurita withdraws all extremities to peripheral noxious stimulation. Tone is normal. DTRs: Deep tendon reflexes are 2+ and symmetric at the triceps, biceps, brachioradialis, and patellas. Deep tendon reflexes are absent and symmetric at the Achilles. Plantar responses are flexor bilaterally. Sensation: Sensation is as per motor exam. Cerebellar: Unable to assess secondary to patient being severely encephalopathic. Gait: Unable to assess secondary to the patient being severely encephalopathic. Speech: Spontaneous speech is moderately dysarthric. Involuntary Movements: None. Pronator Drift: As per motor exam. LABORATORY DATA: The patient's initial comprehensive metabolic panel was significant for an elevated BUN of 49, estimated GFR 51, and BUN to creatinine ratio 48, a mildly elevated AST of 44, and low albumin and globulin levels. Creatine kinase 42, 33, 38. CK-MB 4.00, 3.30, 2.20. Troponin-I 0.344, 0.194, 0.098. B-natriuretic peptide 1092.2. Lactic acid 11.3. A 2nd basic metabolic panel is significant for an elevated BUN of 37 with an elevated BUN to creatinine ratio of 46. The CBC with differential and platelets reveals an elevated white blood cell count of 13.78 with 84.1% neutrophils, 5.5% lymphocytes, 8.1% monocytes, 0.3% eosinophils, and 0.3% basophils. The hemoglobin and hematocrit are 13.7 and 41.6, respectively. The platelet count is 189,000. An arterial blood gas revealed a pH of 7.43, pCO2 of 37, pO2 of 45, bicarbonate of 25, oxygen saturation of 83.0, base excess of 0.0, and FiO2 of 21. A urinalysis revealed brown turbid urine with a pH of 9, 3+ protein, trace ketones, 4+ blood, positive nitrites, 2+ bilirubin, 2+ leukocyte esterase, greater than 50 red blood cells, greater than 50 white blood cells, moderate amorphous sediment, and moderate urine bacteria with few urine epithelials cells. A urine culture was collected and has grown 2 separate gram-negative bacilli. Blood cultures collected on 02/13/2018 have shown no growth after 24 hours. Influenza types A, B antigen negative. DIAGNOSTIC STUDIES: Electrocardiogram 02/13/2018: Normal sinus rhythm at 96 beats per minute. Left axis deviation. Chest x-ray 02/13/2018. 1. Lines and tubes: None. 2. Lungs are well inflated. Mild bilateral perihilar interstitial opacities, likely reflecting mild interstitial edema. Patchy opacity in the left mid to lower left long, which may reflect atelectasis or less likely a contusion. 3. Cardiomediastinal silhouette is normal. Central pulmonary venous congestion. 4. No acute bony abnormalities in this limited view. CT of the chest with contrast, PE protocol, 02/13/2018. 1. No CT evidence of pulmonary embolism. 2. Mild increased attenuation/ground-glass opacity in the central aspect of the upper lobes. This may reflect interstitial edema in the setting of moderate cardiomegaly and pulmonary hypertension and interstitial lung disease is also considered given the emphysematous changes. 3. Bilateral lower lobe, lingula, and right middle lobe scarring versus subsegmental atelectasis. No consolidation. 4. Reflux of contrast into the IVC and hepatic veins suggesting right ventricular dysfunction. 5. Enlarged main pulmonary artery, suggesting pulmonary hypertension. Echocardiogram, 02/14/2018: Ejection fraction 30% to 35%. Thick aortic valve. Trace mitral regurgitation and aortic insufficiency. [id number] tricuspid regurgitation. Left-sided pulmonary embolus suspected. Bilateral carotid artery ultrasound with Doppler 02/14/2018: Atherosclerosis without hemodynamically significant stenosis at the bilateral carotid bulbs and bifurcations. Flow is antegrade in the bilateral vertebral arteries. ASSESSMENT AND PLAN: Ms. Zurita is an 82-year-old woman, admitted to [facility] on February 13, 2018 with acute hypoxemic, respiratory failure, congestive heart failure with acute exacerbation, probable urinary tract infection, reported baseline dementia, and encephalopathy. The patient's neurological examination is extremely limited due to the patient's severe encephalopathy and lack of cooperation with the neurological examination. The patient's laboratory data and other diagnostic studies have been reviewed and are documented above. In my opinion, Ms. Zurita likely has a multifactorial metabolic encephalopathy. In addition to baseline dementia, acute hypoxemic respiratory failure, acute exacerbation of congestive heart failure, as well as an underlying infectious illness (urinary tract infection) are the etiologies of her metabolic encephalopathy. Below are recommendations for further evaluation for other possible contributing factors to the patient's metabolic encephalopathy. 1. Additional blood work will be ordered to evaluate for other causes of encephalopathy. This will include: Thyroid function test, an ammonia level, a vitamin B1 level, a vitamin B12 level, and RPR. A urinalysis was collected and results are detailed above. Also detailed above, the patient's urine culture has grown 2 species of gram-negative bacilli. Blood cultures revealed no growth at [address] of the brain without contrast will be ordered to evaluate for ischemic injury. 3. A routine EEG will be ordered to evaluate for subclinical seizure activity. 4. Treatment of the remaining medical comorbidities is deferred to the primary and other services following the patient. Thank you for this consultation. I will continue to follow the patient while she remains in the hospital. TIME SPENT: 70 minutes. Job#: [id number] CQ MTDD
[2018-02-14 22:42] LABS: FREE THYROXINE INDEX 2.5912 (1.4-3.8); THYROID STIMULATING HORMONE 0.128 uIU/mL (0.350-4.940)
[2018-02-14 22:45] VITALS: BP 127/68
[2018-02-15] VITALS (8 sets, daily range): BP systolic 108–147; BP diastolic 57–76
[2018-02-15] MEDS: METOPROLOL TARTRATE 25 MG TAB PO SCH ×2 (02:15→14:15)
--- NOTE | 2018-02-15 06:50 | Diagnostic Imaging Report ---
History:Altered, confused Comparison studies:None Technique: Axial images were obtained from the skull base to the vertex. Coronal and sagittal images reconstructed from the axial data. Intravenous contrast: None Dose modulation, iterative reconstruction, and/or weight based adjustment of the mA/kV was utilized to reduce the radiation dose to as low as reasonably achievable. Findings: Scalp/skull: No abnormalities. Extra-axial spaces: No masses. No fluid collections. Brain sulci: Mildly prominent. Ventricles: Mild compensatory dilatation. No hydrocephalus. Parenchyma: Scattered hypodensities in the supratentorial white matter are small vessel ischemic changes. No masses, hemorrhage, acute or chronic cortical vascular insults. Sellar/suprasellar region: No abnormalities. Craniocervical junction: Patent foramen magnum. No Chiari one malformation. Incidental findings: Atherosclerotic calcifications in the carotid siphons . Impression: No acute abnormalities. Chronic findings: 1. Mild generalized volume loss. 2. Mild to moderate supratentorial white matter small vessel ischemic changes. Signed by: DR Bob Morales M.D. on 02/15/2018 6:46 AM
[2018-02-15] MEDS: ENOXAPARIN SOD INJ 40 MG/0.4 ML SYR SC SCH (09:00)
[2018-02-15] MEDS: FAMOTIDINE 20 MG/2 ML VIAL IV SCH ×2 (09:00→17:07)
--- NOTE | 2018-02-15 10:14 | Progress Note ---
DATE: February 15, 2018 Ms. Zurita is an 82-year-old female with a history of hypertension and back pain. She came to the emergency room because she has been weak. Apparently, she has been falling. She was confused. She was found to be hypoxemic. After admission, she was seen by land measurer and neurologist. PHYSICAL EXAMINATION GENERAL: Today, she is more awake and alert. VITALS: Temperature is 97.2. Blood pressure 122/68. HEART: Regular rate. LUNGS: Poor inspiratory effort. ABDOMEN: Distended and soft. BLOOD WORK: Potassium 3.6. Creatinine is 0.81. Glucose 113. White count 13.7, hemoglobin 13.7, hematocrit 41.6. Serology: RPR pending. Influenza was negative. Urine culture is showing gram-negative bacillus. Carotid Doppler results are pending. Chest CT shows no PE, atelectasis. Head CT shows no acute findings. ASSESSMENT AND PLAN 1. Acute hypoxemic respiratory failure. 2. Congestive heart failure. 3. Encephalopathy. 4. Recurrent falls. 5. Urinary tract infection with gram-negative bacillus. 6. History of hypertension. 7. Hyperlipidemia. PLAN: At the present time, we are waiting for carotid Doppler results and echocardiogram results. Continue medications. We are also going to wait for the final urine culture results. All this was discussed with the patient and family member at bedside. All questions were answered to satisfaction. Job#: [id number]
[2018-02-15] MEDS: CEFEPIME HCL 2 GM VIAL IV SCH ×2 (10:24→22:00)
[2018-02-16] VITALS: BP 152/80
[2018-02-16] MEDS: METOPROLOL TARTRATE 25 MG TAB PO SCH ×2 (01:39→14:15)
[2018-02-16 04:00] VITALS: BP 128/72
[2018-02-16 08:00] VITALS: BP 125/66
[2018-02-16] MEDS: FAMOTIDINE 20 MG/2 ML VIAL IV SCH ×2 (09:00→17:00)
[2018-02-16] MEDS: ENOXAPARIN SOD INJ 40 MG/0.4 ML SYR SC SCH (09:00)
[2018-02-16] MEDS: CEFEPIME HCL 2 GM VIAL IV SCH ×2 (10:00→22:13)
--- NOTE | 2018-02-16 10:02 | Progress Note ---
DATE: February 16, 2018 Ms. Zurita is an 82-year-old female with a history of hypertension and back pain. Apparently, she was having recurrent episodes of falling at home. She was brought to the emergency room confused and weak. She was found to have low oxygen. She was seen by apron worker and neurologist. PHYSICAL EXAMINATION GENERAL: Today she is awake. Sometimes, she gets a little confused. VITALS: Temperature is 98.3. Blood pressure 128/72. HEART: Regular rate. LUNGS: Clear to auscultation. ABDOMEN: Soft. BLOOD WORK: Potassium 3.6. Creatinine is 0.81. Glucose 113. White count 13.7, hemoglobin 13.7, hematocrit 41.6. Glucose today was 90. Influenza and RPR are nonreactive. Urine culture is showing Escherichia coli and Proteus mirabilis sensitive to cefepime. ASSESSMENT AND PLAN 1. Acute hypoxemic respiratory failure. 2. Congestive heart failure. 3. Encephalopathy, probably due to infection. 4. Recurrent falls. 5. Urinary tract infection with Proteus mirabilis and Escherichia coli. 6. Hypertension. 7. Hyperlipidemia. The plan at the present time is to continue IV antibiotics. Awaiting carotid Doppler results and echocardiogram. We are going to request LTAC evaluation for this patient to continue IV antibiotics and for some physical therapy. Job#: [id number]
[2018-02-16 12:00] VITALS: BP 117/64
[2018-02-16 16:00] VITALS: BP 120/57
--- NOTE | 2018-02-16 17:35 | Electroencephalogram ---
DATE OF STUDY: February 16, 2018 REQUESTING PHYSICIAN: Dr. Daiana Fisher. PATIENT HISTORY: This 82-year-old woman with a history of encephalopathy is having an EEG for evaluation of epileptiform activity. The patient is not taking any medications that might affect the EEG. TECHNIQUE: This is a routine, portable EEG, recorded digitally using the International 10-20 Electrode Placement System and done in the inpatient setting with the patient awake and confused. The EEG is adequate for interpretation. DESCRIPTION: Well-organized, well-sustained, 7-8 Hz activity is best seen symmetrically over the posterior head regions. No focal or epileptiform activity is recorded. Sleep is not recorded. Photic stimulation does not produce a driving response. Hyperventilation is not performed. INTERPRETATION: This electroencephalogram is abnormal with the patient awake and confused due to diffuse slowing of background electrocortical activity compatible with mild generalized encephalopathy. No epileptiform discharges are seen. Clinical correlation is recommended. Job#: [id number] EV MTDD
[2018-02-16 20:00] VITALS: BP 134/65
[2018-02-17] VITALS (7 sets, daily range): BP systolic 117–137; BP diastolic 58–65
[2018-02-17] MEDS: METOPROLOL TARTRATE 25 MG TAB PO SCH ×3 (02:15→14:55)
[2018-02-17] MEDS: FAMOTIDINE 20 MG/2 ML VIAL IV SCH ×2 (09:00→17:00)
[2018-02-17] MEDS: ENOXAPARIN SOD INJ 40 MG/0.4 ML SYR SC SCH (09:00)
[2018-02-17] MEDS: CEFEPIME HCL 2 GM VIAL IV SCH ×2 (10:00→22:37)
--- NOTE | 2018-02-17 10:10 | Progress Note ---
DATE: February 17, 2018 Ms. Zurita is an 82-year-old female with a history of hypertension and back pain came to the emergency room after apparently falling several times. She was confused and weak. She was found to have low oxygen and urine infection. She was seen by physician allergist immunologist and neurologist. PHYSICAL EXAMINATION GENERAL: Today, she is awake. She is alert. VITALS: Temperature is 97.7, blood pressure 120/59. HEART: Regular rate. LUNGS: Poor inspiratory effort. ABDOMEN: Soft. BLOOD WORK: On the urine culture, UTI with Proteus mirabilis and E. coli. She has been seen by neurologist. ASSESSMENT AND PLAN 1. Acute hypoxemic respiratory failure. 2. Congestive heart failure. 3. Encephalopathy probably due to urinary tract infection. 4. Recurrent falls. 5. Urinary tract infection with Proteus mirabilis and Escherichia coli. 6. Hyperlipidemia. 7. Hypertension. PLAN: At the present time, is to continue to monitor mental status. Continue IV antibiotics. LTAC evaluation was requested. If the patient gets denied from LTAC, we are going to get a SNF evaluation for her due to recurrent falls and her mental status is not safe for her to go home by herself. Job#: [id number] BENJAMIN
[2018-02-17] MEDS ORDERED: IBUPROFEN 400 MG TAB PO PRN (16:00)
[2018-02-18 00:13] VITALS: BP 150/73
[2018-02-18] MEDS: METOPROLOL TARTRATE 25 MG TAB PO SCH ×2 (02:01→15:20)
[2018-02-18 04:48] VITALS: BP 163/72
[2018-02-18 07:39] VITALS: BP 135/63
[2018-02-18 08:08] VITALS: BP 135/63
[2018-02-18] MEDS: FAMOTIDINE 20 MG/2 ML VIAL IV SCH (08:45)
[2018-02-18] MEDS: ENOXAPARIN SOD INJ 40 MG/0.4 ML SYR SC SCH (08:45)
--- NOTE | 2018-02-18 09:20 | Progress Note ---
DATE: February 18, 2018 Ms. Zurita is an 82-year-old female with a history of hypertension and back pain. She came to the emergency room complaining of weakness and falling several times. When she came here, she was found to have a urinary tract infection and low oxygen, and she was confused. She has been seen by architectural engineering teacher and neurologist. PHYSICAL EXAMINATION GENERAL: Today, she is a little more awake and alert. VITALS: Temperature is 98. Blood pressure is 135/63. HEART: Regular rate. LUNGS: Clear to auscultation. ABDOMEN: Soft. BLOOD WORK: White count 13.78, hemoglobin 13.7. TSH was a little low. Influenza negative. Urine culture shows Proteus mirabilis and E. coli. ASSESSMENT AND PLAN 1. Acute hypoxemic respiratory failure, improving. 2. Congestive heart failure. 3. Encephalopathy, probably due to infection. 4. Urinary tract infection with Proteus mirabilis and Escherichia coli. 5. Recurrent falls and weakness. 6. Hyperlipidemia. 7. Hypertension. The plan at the present time is to continue IV antibiotics and continue some PT and OT. We are waiting for insurance approval for LTAC. If she gets denied, we are going to get a SNF evaluation for her. All of this was discussed with the patient, and all questions were answered to satisfaction. Job#: [id number] TOMMY
[2018-02-18] MEDS: CEFEPIME HCL 2 GM VIAL IV SCH (09:44)
[2018-02-18 10:50] LABS: HEMATOCRIT 36.4 % (34.2-44.1); HEMOGLOBIN 11.7 g/dL (12.0-16.0); MEAN CORPUSCULAR HEMOGLOBIN 30.9 pg (28-32); MEAN CORPUSCULAR HGB CONC 32.1 g/dL (31-35); PLATELET COUNT 323 x10e3/uL (140-360); RED BLOOD COUNT 3.79 x10e6/uL (3.6-5.1); RED CELL DISTRIBUTION WIDTH 14.9 % (11.7-14.4)
[2018-02-18 10:56] LABS: ANION GAP 11.8 mmol/L (8-16); BLOOD UREA NITROGEN 16 mg/dL (7-26); BUN/CREATININE RATIO 24 (6-25); CALCIUM 9.3 mg/dL (8.4-10.2); CARBON DIOXIDE 29 mmol/L (22-29); CHLORIDE 104 mmol/L (98-107); CREATININE, SERUM 0.66 mg/dL (0.57-1.11); EST GLOMERULAR FILTRATION RATE > 60 ML/MIN (60-); GLUCOSE 130 mg/dL (74-118); POTASSIUM 3.8 mmol/L (3.5-5.1); SODIUM 141 mmol/L (136-145)
[2018-02-18 11:17] VITALS: BP 139/61
[2018-02-18 14:22] VITALS: BP 152/60
[2018-02-19] MEDS ORDERED: AMLODIPINE BESYLATE 5 MG TAB PO SCH (09:00)
== END 2018-02-18 17:41 | DRG 189 ==
LOC: ER 08:22 → ERHOLD 12:47 → MED/SURG3 02-14 22:45
PROVIDERS: ADMIT Internal Medicine; ATTEND Internal Medicine
DX: J96.01 Acute respiratory failure with hypoxia (principal); G93.41 Metabolic encephalopathy; N39.0 Urinary tract infection, site not specified; I11.0 Hypertensive heart disease with heart failure; I50.9 Heart failure, unspecified; B96.4 Proteus (mirabilis) (morganii) as the cause of diseases classified elsewhere; B96.20 Unspecified Escherichia coli [E. coli] as the cause of diseases classified elsewhere; Z16.12 Extended spectrum beta lactamase (ESBL) resistance; E86.0 Dehydration; R47.1 Dysarthria and anarthria; F03.90 Unspecified dementia, unspecified severity, without behavioral disturbance, psychotic disturbance, mood disturbance, and anxiety; I27.20 Pulmonary hypertension, unspecified; E78.5 Hyperlipidemia, unspecified; Z91.81 History of falling
CPT/HCPCS: 36415; 36600; 51700; 70450; 71045; 71260; 80048; 80053; 81001; 82140; 82550; 82553; 82607; 82805; 82948; 83605; 83880; 84425; 84436; 84443; 84479; 84484; 85007; 85025; 85027; 86592; 87040; 87071; 87086; 87186; 87205; 87400; 93005; 93306; 93880; 94640; 95816; 99284; J0692; J1650; J1940; J2270; J7030; Q9967

== ENCOUNTER 2018-04-06 16:31 | Inpatient (IN) | payer MEDICARE ==
[~2018-04-06] VITALS: Ht 160 cm; Wt 84.6 kg
[~2018-04-06 16:31] MED LIST: ASPIR 8181 MG PO; CENTRUM COMPLE1 EACH PO; COQ-10100 MG PO; HAIR, SKIN & N1 EACH PO; HYDRALAZINE HCL25 MG PO; LOSARTAN POTASS25 MG PO; OCUVITE SOFTGE1 EACH PO; VITAMIN B-121000 MCG PO; ZETIA10 MG PO
[2018-04-06] MEDS ORDERED: VANCOMYCIN 1GM/NS 250 ML 250 ML IV STA (16:44)
[2018-04-06] MEDS ORDERED: SODIUM CHLORIDE 0.9% 1000ML 1,000 ML IV STA (16:44)
[2018-04-06] MEDS ORDERED: CEFEPIME HCL 1 GM VIAL IV SCH (16:45)
--- NOTE | 2018-04-06 17:37 | Diagnostic Imaging Report ---
Examination: Single AP view of the chest. COMPARISON: Portable chest 02/13/2018, CT chest 02/14/2028 INDICATION: Critical labs IMPRESSION: 1. Lines and Tubes: None 2. Lungs are well-inflated. No consolidation or effusion. Mild tram tracking noted in the right infrahilar/medial lower lung area, likely reflecting sequela of bronchitis. 3. Stable mild cardiomegaly. Mild prominence of the right pulmonary artery. No central venous congestion. 4. No acute bony abnormalities. Generalized osteopenia. Signed by: Dr. Juan Cota M.D. on 04/06/2018 5:34 PM
[2018-04-06] MEDS ORDERED: VANCOMYCIN HCL 1GM/NS 250 ML BAG IV SCH (17:45)
[2018-04-06] MEDS ORDERED: LEVOFLOXACIN 750MG/D5W 150ML IV SCH (17:45)
[2018-04-06] MEDS: CEFEPIME 2 GM/NS 0.9% 100 ML 100 ML IV SCH ×2 (17:53→20:07)
[2018-04-06] MEDS ORDERED: CEFEPIME 1GM/NS 0.9% 50 ML 50 ML IV SCH (18:00)
[2018-04-06] MEDS ORDERED: LEVOFLOXACIN 750MG/D5W 150ML 150 ML IV SCH (18:00)
[2018-04-06 18:11] LABS: BASOPHILS # (AUTO) 0.1 (0.0-0.1); BASOPHILS % 0.3 % (0.0-1.0); EOSINOPHILS # (AUTO) 0.1 (0.0-0.4); EOSINOPHILS % 0.1 % (0.0-6.0); HEMOGLOBIN 10.8 g/dL (12.0-16.0); LYMPHOCYTES # (AUTO) 1.5 (1.0-3.2); LYMPHOCYTES % 3.4 % (18.0-39.1); MEAN CORPUSCULAR HEMOGLOBIN 30.9 pg (28-32); MEAN CORPUSCULAR HGB CONC 33.8 g/dL (31-35); MEAN CORPUSCULAR VOLUME 91.7 fL (81-99); MONOCYTES # (AUTO) 2.1 (0.2-0.8); MONOCYTES % 4.7 % (4.4-11.3); PLATELET COUNT 213 x10e3/uL (140-360); RED BLOOD COUNT 3.49 x10e6/uL (3.6-5.1); RED CELL DISTRIBUTION WIDTH 16.4 % (11.7-14.4)
--- NOTE | 2018-04-06 18:18 | NUR ---
44.15 wbc per howie in the lab
[2018-04-06 18:21] LABS: ALBUMIN 1.9 g/dL (3.5-5.0); ALBUMIN/GLOBULIN RATIO 0.6 (0.8-2.0); ANION GAP 12.9 mmol/L (8-16); CALCIUM 8.3 mg/dL (8.4-10.2); CREATININE, SERUM 2.49 mg/dL (0.57-1.11)
[2018-04-06 18:22] LABS: POTASSIUM 2.9 mmol/L (3.5-5.1)
--- NOTE | 2018-04-06 18:25 | NUR ---
JESSI FROM LAB CALLED TO REPORT K+ 2.9. INFORMED DR. CORRALES WELL OLGA, RN PRIMARY NURSE.
[2018-04-06 18:28] LABS: CREATINE KINASE MB 0.9 ng/mL (0-5.0)
[2018-04-06] MEDS ORDERED: POTASSIUM CHLORIDE 10MEQ/100ML 100 ML IV ONE (18:45)
[2018-04-06] MEDS: POTASSIUM CHLORIDE 20 MEQ TAB CR PO SCH (18:58)
[2018-04-06] MEDS: SODIUM CHLORIDE 0.9% 1000ML 1,000 ML IV SCH ×3 (18:59→22:45)
[2018-04-06] MEDS ORDERED: SODIUM CHLORIDE 0.9% 1000ML 1,000 ML ONE (19:23)
[2018-04-06 19:52] LABS: LYMPHOCYTES % (MANUAL) 4 % (19-48); MONOCYTES % (MANUAL) 6 % (3.4-9.0); NEUTROPHILS % (MANUAL) 89 % (40-74); PLATELET ESTIMATE ADEQUATE; PLATELET MORPHOLOGY COMMENT NORMAL; RBC MORPHOLOGY COMMENT NORMAL
[2018-04-06 21:00] VITALS: BP 105/47
[2018-04-06 21:55] VITALS: BP 105/47
[2018-04-06] MEDS ORDERED: CEFEPIME HCL 2 GM/SOD CHL 0.9% 100 ML BAG IV SCH (22:00)
--- NOTE | 2018-04-06 22:23 | NUR ---
Report received from [employer] Paulino. Patient admitted in unit at 2048 by stretcher. Patient alert/oriented x3. Denied pain nand no SOB noted. No respiratory distress noted. Patient had continued on 4lliters oxygen via nasal canula, Spo2 maintained 98%. V/S WNL. Patient's daughter in law in the room.Head to toe assessment completed. No skin breakdown noted. Patient had diaper on, redness on her middle buttocks noted. Patient instructed to call for help as needed. Bed in lower position,locked. Call ulloa within reach. Will continue to monitor.
[2018-04-06 22:37] VITALS: BP 105/47
[2018-04-07] VITALS (7 sets, daily range): BP systolic 106–136; BP diastolic 49–91
--- NOTE | 2018-04-07 00:13 | NUR ---
Patient had very small liquid yellow BM,assisted to cleaned and changed diaper. Patient tolerated well. Will continue to monitor.
[2018-04-07] MEDS ORDERED: MULTIVITAMINS- 12 INJECTION 10 ML, FOLIC ACID MDV 5 MG, THIAMINE HCL INJ 100 MG in SODI... IV SCH (01:00)
[2018-04-07] MEDS ORDERED: CEFEPIME 2 GM/NS 0.9% 100 ML 100 ML IV SCH ×3 (02:00→10:00)
[2018-04-07] MEDS: SODIUM CHLORIDE 0.9% 1000ML 1,000 ML IV SCH ×3 (02:45→21:46)
[2018-04-07 03:05] LABS: CREATINE KINASE MB 4.5 ng/mL (0-5.0)
[2018-04-07 05:33] LABS: BASOPHILS # (AUTO) 0.1 (0.0-0.1); BASOPHILS % 0.2 % (0.0-1.0); EOSINOPHILS # (AUTO) 0.1 (0.0-0.4); EOSINOPHILS % 0.2 % (0.0-6.0); HEMATOCRIT 32.2 % (34.2-44.1); HEMOGLOBIN 10.7 g/dL (12.0-16.0); LYMPHOCYTES % 2.4 % (18.0-39.1); MEAN CORPUSCULAR HEMOGLOBIN 30.5 pg (28-32); MEAN CORPUSCULAR HGB CONC 33.2 g/dL (31-35); MEAN CORPUSCULAR VOLUME 91.7 fL (81-99); MONOCYTES # (AUTO) 1.4 (0.2-0.8); MONOCYTES % 3.6 % (4.4-11.3); NEUTROPHILS # (AUTO) 35.4 (2.1-6.9); NEUTROPHILS % 89.3 % (38.7-80.0); PLATELET COUNT 201 x10e3/uL (140-360); RED BLOOD COUNT 3.51 x10e6/uL (3.6-5.1); RED CELL DISTRIBUTION WIDTH 16.5 % (11.7-14.4)
[2018-04-07 06:09] LABS: ANION GAP 11.6 mmol/L (8-16); CALCIUM 8.1 mg/dL (8.4-10.2); CREATININE, SERUM 2.03 mg/dL (0.57-1.11); POTASSIUM 3.6 mmol/L (3.5-5.1)
[2018-04-07] MEDS ORDERED: DEXTROSE 50% SYRINGE 50 ML IV ONE (06:17)
[2018-04-07] MEDS ORDERED: DEXTROSE 50% SYRINGE 50 ML IV STA (06:19)
--- NOTE | 2018-04-07 06:25 | NUR ---
Paged Dr. Ochoa for consult, waiting for MD call back.
--- NOTE | 2018-04-07 06:27 | NUR ---
Patient Blood sugar 59 at this time, given inj dextrose 50% syringe 50ml at this time. Will continue to monitor.
--- NOTE | 2018-04-07 06:30 | NUR ---
Called Dr. Tess MD aware about his consult at this time.
--- NOTE | 2018-04-07 06:36 | NUR ---
Blood sugar 159 at this time.
--- NOTE | 2018-04-07 06:40 | NUR ---
Paged Dr. Nickerson for consult, waiting for MD call back.
[2018-04-07 06:44] LABS: CREATINE KINASE MB 4.3 ng/mL (0-5.0)
--- NOTE | 2018-04-07 06:57 | NUR ---
Called Dr. Juli MD aware about BS at this time. NNO.
--- NOTE | 2018-04-07 07:25 | NUR ---
Report given to upcoming nurse ashley Soler done. Addendum: 04/07/18 at 0634 by Suly Tatum RN wrong charting
--- NOTE | 2018-04-07 07:26 | NUR ---
Report given to oncoming nurse Karlene,walking round done.
[2018-04-07 07:37] LABS: ANISOCYTOSIS MODERATE; BAND NEUTROPHILS % (MANUAL) 3 %; LYMPHOCYTES % (MANUAL) 2 % (19-48); MONOCYTES % (MANUAL) 3 % (3.4-9.0); NEUTROPHILS % (MANUAL) 92 % (40-74)
[2018-04-07 07:38] LABS: HYPOCHROMASIA SLIGHT; PLATELET ESTIMATE ADEQUATE; PLATELET MORPHOLOGY COMMENT NORMAL; POIKILOCYTOSIS SLIGHT; RBC MORPHOLOGY COMMENT NORMAL
--- NOTE | 2018-04-07 09:33 | NUR ---
DR. BAE SAW AND ASSESSED THE PATIENT, PLAN IS FOR URINALYSIS AND CT ABDOMEN THIS MORNING. PATIENT IS INCONTINENT OF URINE, PLAN IS FOR IN AND OUT CATHETER TO OBTAIN THE SPECIMEN.
--- NOTE | 2018-04-07 10:05 | History and Physical ---
Ms. Zurita is an 82-year-old female with a history of hypertension and back pain. Right now, prison resident, who came to the emergency room. Sent from the prison for abnormal labs. Apparently, white count was 50,000. Patient states she has been feeling sick for a few days with body aches, fever and diarrhea. PAST MEDICAL HISTORY: She has hypertension and back pain. ALLERGIES: NO KNOWN DRUG ALLERGIES. SOCIAL HISTORY: She does not smoke and she does not drink. She is living in a prison at the present time. PAST SURGICAL HISTORY: She denies. PHYSICAL EXAMINATION GENERAL: Today she is awake. She is alert. VITALS: Temperature is 98.6, blood pressure 125/56. HEART: Regular rate. LUNGS: Clear to auscultation. ABDOMEN: Distended and soft. BLOOD WORK: White count yesterday was 44.15 and today is 39.67, hemoglobin is 10.7, hematocrit 32.2. Potassium 3.6, creatinine 2.03. Cardiac enzymes negative. Urine shows more than 50 white blood cells. Influenza negative. RPR nonreactive. Chest x-ray shows stable cardiomegaly. Lungs are well inflated. No consolidations or effusion. There is a sequelae reflecting bronchitis. ASSESSMENT AND PLAN 1. Sepsis secondary probably to urinary tract infection. 2. Bronchitis. 3. Diarrhea. 4. Body aches. 5. Leukocytosis. 6. History of hypertension. 7. Back pain. PLAN: At present time, is to continue IV antibiotics. Continue to monitor white count. Infectious disease consult, pulmonary consult and cardiology consults were placed yesterday. All this was discussed with the patient. All questions were answered to satisfaction. Job#: [id number] ID
[2018-04-07] MEDS ORDERED: DIATRIZOATE MEGL/DIATRIZOA SOD 30 ML BTL PO ONE (10:26)
--- NOTE | 2018-04-07 11:45 | NUR ---
PATIENT IS OFF THE UNIT PER BED TO RADIOLOGY FOR CT ABDOMEN. CONDITION STABLE PRIOR TO LEAVING THE UNIT AND NO PAIN VOICED.
[2018-04-07 11:57] LABS: CLARITY,URINE CLOUDY (CLEAR); COLOR,URINE YELLOW (YELLOW)
[2018-04-07 11:58] LABS: LEUKOCYTE ESTERASE ,URINE 2+ (NEGATIVE); NITRITE,URINE NEGATIVE (NEGATIVE)
[2018-04-07 11:59] LABS: BILIRUBIN,URINE NEGATIVE (NEGATIVE); KETONES,URINE NEGATIVE (NEGATIVE); PROTEIN,URINE DIPSTICK 1+ (NEGATIVE); URINE UROBILINOGEN 0.2 mg/dL (0.2 - 1)
[2018-04-07 12:09] LABS: BACTERIA,URINE MANY /HPF; EPITHELIAL CELLS,URINE FEW /LPF; RBC,URINE 0-5 /HPF (0-5); WBC,URINE (MAN) >50 /HPF (0-5)
[2018-04-07 12:11] LABS: AMORPHOUS SEDIMENT,URINE MODERATE (FEW)
--- NOTE | 2018-04-07 12:12 | NUR ---
PATIENT'S BACK ON THE UNIT, CONDITION REMAINS STABLE AND SHE DENIES PAIN. HER [id number] IS ASSISTING HER WITH HER LUNCH.
--- NOTE | 2018-04-07 12:49 | Consultation ---
DATE OF CONSULTATION: April 07, 2018 PULMONARY CONSULTATION This unfortunate, 82-year-old woman was found to have gram-negative sepsis in the shelter with fever. ID is pending. Apparently she was on Levaquin at the time. She does admit to fever and dysuria. She thought she had the flu, but no cough and no diarrhea. NO KNOWN ALLERGIES. Ex-smoker. 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 Born in [place], [place]. Medications include DuoNeb, Benadryl, Levaquin, metoprolol, Norvasc. History of pulmonary embolus in the past. Surgical history: Tubal ligation. PHYSICAL EXAMINATION GENERAL: A well-developed white female in no acute distress but appears her stated age. VITALS: Temperature 95, pulse 95, blood pressure 125/80. HEAD: Normocephalic and atraumatic. NECK: Trachea is midline. LUNGS: A few basilar rales. HEART: Regular rhythm. ABDOMEN: Tender with rebound. EXTREMITIES: Not edematous. IMPRESSION: Rule out abdominal sepsis, diverticular disease, less likely urinary source. Chest x-ray is likely vascular congestion and enlarged pulmonary artery. History of pulmonary embolus in the past. Gram-negative sepsis. Antibiotics as per ID. Will request urinalysis and CT of chest, abdomen and pelvis. Thank you for this kind referral. Job#: [id number] TOMMY
[2018-04-07] MEDS ORDERED: CEFEPIME 1GM/NS 0.9% 50 ML 50 ML IV SCH (13:00)
--- NOTE | 2018-04-07 13:03 | Diagnostic Imaging Report ---
EXAMINATION: CT of the chest, abdomen and pelvis with and without contrast. TECHNIQUE: Helical CT images of the chest, abdomen and pelvis were performed from the lung apices to the lesser trochanters without intravenous contrast. Positive enteric contrast administered. Coronal and sagittal reformatted images were obtained. Dose modulation, iterative reconstruction, and/or weight based adjustment of the mA/kV was utilized to reduce the radiation dose to as low as reasonably achievable. COMPARISON: None. CLINICAL HISTORY:History of pneumonia, bacteremia DISCUSSION: CHEST: LINES/TUBES: None. LUNGS AND AIRWAYS: Centrilobular emphysematous change. No consolidative pneumonia atelectasis the lung bases. Calcification of the airways. PLEURA: The pleural spaces are clear. HEART AND MEDIASTINUM: The thyroid gland is normal. The heart size is enlarged. The main pulmonary artery is enlarged.. Vascular and valvular calcifications. LYMPH NODES: No significant mediastinal, hilar or axillary lymphadenopathy is seen. BONES AND SOFT TISSUES: Bone demineralization multilevel spondyloarthropathy. Scattered Schmorl's nodes with midthoracic compression deformity at approximately T5. ABDOMEN/PELVIS: HEPATOBILIARY:7 cm cyst right hepatic lobe. Gallbladder unremarkable. SPLEEN: No splenomegaly. PANCREAS: No focal masses or ductal dilatation. ADRENALS: No adrenal nodules. KIDNEYS/URETERS: 3.2 cm cyst posterior aspect right kidney. Asymmetry of the kidneys with the right appearing larger. Dilatation of the right renal collecting system with multiple layering calculi within the right pelvis, approximately 5 with the largest measuring 0.8 cm. The most distal calculus measures 0.6 cm. No distal obstruction. Right perinephric stranding. PELVIC ORGANS/BLADDER: The uterus present. 4.8 cm simple appearing right adnexal cyst. PERITONEUM/RETROPERITONEUM: No free air or fluid. LYMPH NODES: No intra-abdominal,retroperitoneal, pelvic or inguinal lymphadenopathy. VESSELS: Vascular calcifications. GI TRACT: Colonic diverticulosis without inflammatory change. BONES AND SOFT TISSUES: Remote left-sided rib fractures. No soft tissue abnormalities. IMPRESSION: Centrilobular emphysema and lung base atelectasis. No pneumonia. Right renal hydronephrosis with multiple calculi within the right extrarenal pelvis. No distal obstruction. Colonic diverticulosis without inflammatory change. 4.8 cm simple appearing right adnexal cyst. Signed by: Dr. Matt Jin M.D. on 04/07/2018 12:59 PM
--- NOTE | 2018-04-07 13:30 | Consultation ---
DATE OF CONSULTATION: April 07, 2018 REASON FOR CONSULTATION: Shortness of breath, cough and leukocytosis. This patient is an 82-year-old white female who has a history of dementia. According to her daughter, she was brought here because of shortness of breath and cough. Patient when I first met her she was lying in bed comfortable. She has no complaints. The patient is from a long-term. She was sent here because of abnormal lab. Apparently, her white count was 50,000. She was short of breath and cough for a few days, so she was sent here. She was hypoxemic, apparently. She is being admitted. The patient does not really provide any complaints at the present time. Review of systems unremarkable. Her daughter does not know more information than what I provided above. PAST MEDICAL HISTORY: Dementia and osteoarthritis. PAST SURGICAL HISTORY: Denies. ALLERGIES: NKA. SOCIAL HISTORY: From a long-term. FAMILY HISTORY: Could not be obtained. REVIEW OF SYSTEMS HEENT: There is no headache, visual change or hearing changes. GI: There is no nausea. No vomiting. No diarrhea. CARDIAC: There is no arrhythmia. NEURO: No seizure activity. The patient looks really comfortable. She denies any cough or shortness of breath, but daughter tells me there was. LABORATORY DATA: On admission, white count 44.1 and came down to 39.6, hemoglobin 10, hematocrit 32. Potassium 3.6, creatinine 2.03. Cardiac enzymes within normal limits. Chest x-ray showed cardiomegaly. PHYSICAL EXAMINATION GENERAL: She is alert and confused. Does not seem to be in acute distress. VITALS: Stable. Currently afebrile. HEENT: She is not icteric. NECK: Supple. CHEST: Clear. Bilateral coarse. CORE: S1 and S2. ABDOMEN: Soft. Bowel sounds present. No tenderness. EXTREMITIES: No edema. SKIN: There is no rash. IMPRESSION: Sepsis and leukocytosis. Source is unclear at the present time. Computerized tomography of the abdomen and pelvis was ordered, but I do not have the report yet. She is currently on cefepime, levofloxacin, metronidazole, and vancomycin. I would recommend to continue with cefepime and Flagyl for the time being since she has kidney function. Feels it is probably chronic. Will adjust the cefepime to 1 g q. 8 h. Will hold off the Levaquin also since she has dementia. I am going to hold off the vancomycin since she got a dose and then reassess. Her cultures are still pending. Will see if we need the vancomycin tomorrow. Will recheck chemistry panel in the morning. Further recommendations to follow. Since the chest x-ray is negative, concerned about intra-abdominal process. Will follow with you. Job#: [id number] BENJAMIN
[2018-04-07] MEDS: METRONIDAZOLE 500MG/NS 100ML 100 ML IV SCH ×2 (13:50→21:46)
--- NOTE | 2018-04-07 13:52 | NUR ---
Nutrition Screen Note RD Recommendation for Physician: -Continue cardiac diet as ordered Plan of Care: RD following, monitoring for tolerance and adequacy Nutrition reason for involvement: Nutrition Risk Trigger MST Primary Diagnose(s): Sepsis and leukocytosis PMH: hypertension and back pain Ht: 63in Wt: 190.01lb BMI: 33.7kg/m2 IBW: 115lb RD Assessment: (04/07) Chart reviewed. Labs and meds reviewed. 82 yo F, who is admitted for abnormal WBC counts. Pt came from a half-way. CT abd/ pel showed right renal hydronephrosis with multiple calculi with no distal obstruction, colonic diverticulosis without inflammatory change and 4.8 cm simple appearing right adnexal cyst. Visited pt in the room. Pt reports poor appetite with decreased meal intake x2-3 days [employer]. Pt didnt feel like eating lunch today neither. Pt complains of some nausea but no vomiting episode today. LBM 04/07, soft brown stool. No complains of chewing or swallowing difficulty. Pt reports of 5lbs weight loss in the last 2-3 months (not meeting criteria for malnutrition). No physical sign of muscle and fat loss. Offered supplements and snack options, pt is not interested. Will continue to monitor and follow. Current Diet: cardiac diet Malnutrition Evaluation (04/07/2018) The patient does not meet criteria for a specified degree of malnutrition at this time. Will re-evaluate at follow-up as appropriate. Diet Education Needs Assessment: Diet education not indicated. Nutrition Care Level: low Signed: Catherine Bruno, MS, RD, LD
--- NOTE | 2018-04-07 14:55 | NUR ---
PATIENT ASSISTED OUT OF BED TO THE BEDSIDE COMMODE, SHE'S VERY UNSTEADY ON GAIT. SHE HAD A MODERATE AMOUNT OF SOFT STOOL, KEPT CLEAN AND DRY. SHE'S ASSISTED BACK TO THE BED, ALLEVYN DRESSING APPLIED TO THE SACRUM, HEELS PROTECTORS ON. CALL LIGHT WITHIN EASY REACH, FAMILY MEMBER WITH THE PATIENT.
--- NOTE | 2018-04-07 16:48 | NUR ---
WOUND CARE NURSE CONSULTATION. 82 YEAR OLD FEMALE ADMITTED TO [facility] WITH DX OF BACTEREMIA. HEAD TO TOE ASSESSMENT PERFORMED TODAY, PT PRESETS WITH 35X1.5CM DTI TO RIGHT SIDE OF TORSO AND UNDERNEATH RIGHT BREAST, 3X1CM DTI UNDER LEFT BREAST AND YEAST TO PERINEUM, ABD FOLDS, WELL INCONTINENT DERMATITIS TO SACRUM AND BILATERAL BUTTOCKS. NO OTHER OTHER AREAS OF CONCERN NOTED AT THIS TIME. NO S/S OF INFECTION. LABS: 39.61 HGB: 10.7 HCT: 32.2 GLUCOSE: 159 URINE CX PENDING BLOOD CX PENDING. RECOMMENDATIONS: NYSTATIN TO PERINEUM, ABD FOLDS, SACRUM AND BILATERAL BUTTOCKS. VENELEX TO RIGHT SIDE OF TORSO AND UNDERNEATH BILATERAL BREAST DAILY. CONTINUE WITH HEEL PROTECTORS AND PILLOW SUSPENSIONS. CONTINUE WITH ALTERNATING LOW AIR MATTRESS. TURN PT EVERY TWO HOURS. THANKS FOR THIS CONSULTATION. Addendum: 04/07/18 at 1708 by Alpa Isidro RN Amended: Links added.
[2018-04-07] MEDS ORDERED: VANCOMYCIN 1GM/NS 250 ML 250 ML IV SCH (17:00)
--- NOTE | 2018-04-07 17:48 | Consultation ---
DATE OF CONSULTATION: April 07, 2018 CARDIOLOGY CONSULTATION REASON FOR CONSULTATION: Possible need for a transesophageal echocardiogram. HISTORY OF PRESENT ILLNESS: This is an 82-year-old woman who resides at a [facility], who has a history of hypertension and arthritis and urinary incontinence, who presented to the [facility] with an elevated white count. She states that she has felt unwell with lethargy over the last few days. She denies any significant cough, chest pain, shortness of breath or abdominal pain. Evidently she was noted to have bacteremia. However, these reports are unavailable to me. She has no other past cardiovascular history. PAST MEDICAL HISTORY: As stated above in the HPI. PAST SURGICAL HISTORY: None recent. PAST FAMILY HISTORY: No premature coronary artery disease or sudden cardiac . SOCIAL HISTORY: No illicit drug use, alcohol use, tobacco use. ALLERGIES: NO KNOWN DRUG ALLERGIES. MEDICATIONS: See medication reconciliation form. PHYSICAL EXAMINATION VITAL SIGNS: Temperature is 98.6, heart rate is 95, respirations are 20, blood pressure is 125/56, oxygen saturation 96% on 4 liters nasal cannula. GENERALLY: She is an elderly woman lying comfortably in bed. HEAD: Normocephalic, atraumatic. EYES: The extraocular muscles are intact. Conjunctiva is clear. NECK: No JVD, no bruits. CARDIOVASCULAR: Regular rate and rhythm. Normal S1 and S2. LUNGS: Clear to auscultation. ABDOMEN: Soft, nontender. EXTREMITIES: Trace edema. VASCULAR: Diminished pulses. SKIN: Warm, dry, intact. LABORATORY DATA: White blood cell count 39, hemoglobin 10.7, platelets 201. Creatinine is 2.03. Cardiac enzymes within normal limits. MEDICATIONS: Reviewed. A 2-D echocardiogram showed preserved left ventricular systolic function with no significant valvular abnormalities. The aortic and mitral valves were mildly thickened with no vegetations present. IMPRESSION 1. Sepsis. 2. Leukocytosis. 3. Hypertension. 4. Aortic sclerosis. 5. Mitral annular calcification. RECOMMENDATIONS: There is no current indication for transesophageal echocardiography. Patient has preserved left ventricular systolic function with age-related changes to the aortic and mitral valves with mild thickening and calcifications. No vegetations were seen. Continue infectious treatment per medical team. Thank you for the consultation. Will follow along with you. VIKAS MOSLEY D.O. Job#: [id number] EV
[2018-04-07] MEDS: ENOXAPARIN SOD INJ 40 MG/0.4 ML SYR SC SCH (18:05)
--- NOTE | 2018-04-07 20:49 | NUR ---
SCD's connected on bilateral lower legs at this time.
--- NOTE | 2018-04-07 20:59 | NUR ---
Report received from AM RN Karlene. Patient received sleeping comfortably on her bed. Denied pain and no SOB. No respiratory distress noted. Respiration even and unlabored. Patient daughter in law in the the room. Bed in lower position,locked. Call ulloa within reach. Will continue to monitor.
[2018-04-08] VITALS (7 sets, daily range): BP systolic 101–146; BP diastolic 45–81
[2018-04-08] MEDS: SODIUM CHLORIDE 0.9% 1000ML 1,000 ML IV SCH ×2 (00:45→10:14)
[2018-04-08] MEDS: METRONIDAZOLE 500MG/NS 100ML 100 ML IV SCH ×3 (05:11→20:56)
[2018-04-08 05:20] LABS: BASOPHILS # (AUTO) 0.1 (0.0-0.1); BASOPHILS % 0.2 % (0.0-1.0); EOSINOPHILS % 0.1 % (0.0-6.0); HEMATOCRIT 31.7 % (34.2-44.1); HEMOGLOBIN 10.6 g/dL (12.0-16.0); LYMPHOCYTES # (AUTO) 0.9 (1.0-3.2); LYMPHOCYTES % 3.4 % (18.0-39.1); MEAN CORPUSCULAR HEMOGLOBIN 30.5 pg (28-32); MEAN CORPUSCULAR HGB CONC 33.4 g/dL (31-35); MEAN CORPUSCULAR VOLUME 91.4 fL (81-99); MONOCYTES # (AUTO) 1.1 (0.2-0.8); MONOCYTES % 4.1 % (4.4-11.3); NEUTROPHILS # (AUTO) 24.7 (2.1-6.9); NEUTROPHILS % 90.3 % (38.7-80.0); PLATELET COUNT 190 x10e3/uL (140-360); RED BLOOD COUNT 3.47 x10e6/uL (3.6-5.1)
[2018-04-08 05:31] LABS: ANION GAP 10.4 mmol/L (8-16); CALCIUM 8.4 mg/dL (8.4-10.2); CREATININE, SERUM 1.64 mg/dL (0.57-1.11); POTASSIUM 3.4 mmol/L (3.5-5.1)
--- NOTE | 2018-04-08 06:14 | NUR ---
Patient assisted to changed diaper and cleaned with soap water on mekhi area,buttocks and under breast area. Applied calamine cream on mekhi area ,nystatin powder on Lower abdomen and under breast area.Patient tolerated well.V/S WNL. Will continue to monitor.
--- NOTE | 2018-04-08 07:05 | NUR ---
Report given to oncoming TRENTON Arreola,walking round done.
--- NOTE | 2018-04-08 07:11 | Consultation ---
DATE OF CONSULTATION: April 08, 2018 UROLOGY CONSULTATION REASON FOR CONSULTATION: Hydronephrosis. HISTORY OF PRESENT ILLNESS: Daiana Zuirta is an 82-year-old woman who denies ever having any history of kidney stones. She denies urinary tract infections, hematuria and dysuria. The patient was admitted with malaise and elevated white count and possible pneumonia. CT scanning revealed hydronephrosis. Urological consultation was sought. The patient currently is a senior care resident at the present time. PAST MEDICAL/SURGICAL HISTORY 1. Hypertension. 2. Back pain. 3. 7, para 7 by normal spontaneous vaginal delivery. 4. Status post tonsillectomy as a child. ALLERGIES: NONE KNOWN. SOCIAL HISTORY: The patient denies smoking, ethanol and drug use. She lives at the senior care at the present time. She used to smoke in the past. 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 CURRENT MEDICATIONS: Refer to the MAR. REVIEW OF SYSTEMS: As consistent above in the history of present illness and past medical history. Otherwise, negative for all other systems. PHYSICAL EXAMINATION GENERAL: Elderly woman lying in bed in no apparent distress. VITALS: She is currently afebrile. Vital signs are currently stable. ABDOMEN: Soft, nondistended and nontender without costovertebral angle tenderness. Kidneys are not palpable without hepatosplenomegaly. No obvious evidence of hernia. For the remaining physical examination systems, please refer to the admission history and physical on the chart. LABORATORY STUDIES: Urine culture is pending. It was sent after the patient was already begun on antibiotics. White blood cell count today is 27,370. Upon admission, it was 44,000. Hemoglobin is low at 10.6. Platelets are normal at 190,000. The patient's sodium was low. It is normal today at 138. Her creatinine came in elevated at 2.03, and today it is better at 1.64. Calcium was low upon admission at 8.1, and it is better at 8.4. Urinalysis yesterday morning upon checking revealed greater than 50 wbcs with moderate bacteria. This was a catheterized specimen according to the nurse. CT scan of the abdomen and pelvis revealed a 3.2 cm right renal cyst with cyst appearing larger. There is dilation of the right renal pelvis with multiple stones with the largest measuring 8.8 cm. There is also a 4.8 cm simple appearing right adnexal cyst. ASSESSMENT 1. Right kidney stones. 2. Right hydronephrosis. 3. Right renal cyst. 4. Leukocytosis. 5. Anemia. 6. Presumably acute renal failure. 7. Hypocalcemia that improved. 8. Urinary tract infection. PLAN: The patient has hydronephrosis in the site of infection and elevated white count and urinary tract infection. Ureteral stenting is necessary in order to relieve the hydronephrosis. This will allow us to better control the patient from an infection standpoint. Once the infection has been completely treated for several weeks with antibiotics that are culture-specific, management of the stones can be pursued. Thank you very much for involving us in the care of your patient. Will be happy to follow her along with you, as well as an outpatient. Job#: [id number] BENJAMIN
[2018-04-08] MEDS: POTASSIUM CHLORIDE 20 MEQ TAB CR PO SCH (09:00)
--- NOTE | 2018-04-08 09:29 | Progress Note ---
DATE: April 08, 2018 Ms. Zurita is an 82-year-old female, a longterm resident, with a history of hypertension and back pain. She was brought to the emergency room because they found she had 50,000 white blood cells. She was feeling sick and having body aches. She was started on IV antibiotics. Yesterday CT scan showed kidney stones and hydronephrosis, so a urology consult was placed. The patient is going to need a stent. PHYSICAL EXAMINATION GENERAL: Today she is awake and alert. She is feeling a little better. VITALS: Temperature is 98.5, blood pressure 117/45. HEART: Regular rate. LUNGS: Poor inspiratory effort. ABDOMEN: Distended and soft. BLOOD WORK: Potassium is 3.4, creatinine 1.64, glucose 82, white count 27.3, hemoglobin 10.6, hematocrit 31.7. The abdominal and pelvic CT showed emphysema, no pneumonia, right renal hydronephrosis, multiple calculi, colonic diverticulosis, and single right adnexal cyst. Urine culture is pending. Blood cultures so far have been negative. Chest CT showed some emphysema, also hydronephrosis. ASSESSMENT AND PLAN 1. Sepsis secondary to urinary tract infection. 2. Right nephrolithiasis. 3. Right hydronephrosis. 4. Leukocytosis. 5. Body aches. 6. History of hypertension. 7. Back pain. The plan at the present time is to continue IV antibiotics. The patient is going to go for a stent, probably today. Continue to monitor white count and electrolytes. All of this was discussed with the patient and family member. All questions were answered to satisfaction. Job#: [id number]
[2018-04-08] MEDS ORDERED: CEFEPIME 1GM/NS 0.9% 50 ML 50 ML IV SCH (10:00)
[2018-04-08] MEDS: BALSAM PERU/CASTOR OIL 60 GM OINT...G. TP SCH (10:15)
[2018-04-08] MEDS: NYSTATIN 15 GM POWDER UD BTL TOP SCH (13:10)
[2018-04-08] MEDS ORDERED: IOPAMIDOL 610MG/1ML 300 MG/ML VIAL IV ONE (14:33)
[2018-04-08] MEDS ORDERED: BELLADONNA/OPIUM 30 MG SUPP RC ONE (14:33)
--- NOTE | 2018-04-08 14:47 | Progress Note ---
DATE: April 08, 2018 CARDIOLOGY PROGRESS NOTE SUBJECTIVE: Patient is nauseous and vomiting currently. Denies any chest pain or shortness of breath. OBJECTIVE VITAL SIGNS: Temperature is 98.2, heart rate 89, respirations are 18, blood pressure is 146/73, oxygen saturation 99% on 4 L nasal cannula. GENERAL: She is a elderly woman appears in mild distress. CARDIOVASCULAR: Regular rate and rhythm. Mild systolic murmur at the left sternal border. LUNGS: Diminished breath sounds at bilateral bases. ABDOMEN: Soft and nontender. EXTREMITIES: Trace edema. CARDIOVASCULAR MEDICATIONS: None. LABORATORY DATA: White blood cell count 27, hemoglobin 10.6. Potassium 3.4, creatinine 1.64. Negative troponins. IMPRESSION 1. Sepsis. 2. Leukocytosis. 3. Hydronephrosis. 4. Hypertension. 5. Aortic sclerosis. 6. Mitral annular calcification. RECOMMENDATIONS: From a cardiovascular standpoint, the patient appears to be doing well. Continue infectious and hydronephrosis treatment per primary teams and urology. She is currently on antibiotic therapies. Her white count is down trending. The patient has negative blood cultures with a urine culture showing gram-negative bacillus. There is no indication for transesophageal echocardiography. Job#: [id number] BENJAMIN
[2018-04-08] MEDS ORDERED: FENTANYL CITRATE/PF 100MCG/2 ML INJ ONE (15:40)
[2018-04-08] MEDS ORDERED: PROPOFOL IV EMULSION 10 MG/ML 20 ML VIAL ONE (17:02)
[2018-04-08] MEDS ORDERED: ONDANSETRON HCL INJ 2MG/ML 2ML 2 MG/ML VIAL ONE (17:02)
[2018-04-08] MEDS ORDERED: LIDOCAINE HCL 2% LOCAL INJ 5 ML SDV VIAL INJ ONE (17:02)
[2018-04-08] MEDS ORDERED: DEXAMETHASONE SOD PHOS INJ 4 MG/ML VIAL ONE (17:02)
[2018-04-08] MEDS ORDERED: SEVOFLURANE INHAL SOLN 250 ML PEN BTL ONE (17:02)
[2018-04-08] MEDS: ENOXAPARIN SOD INJ 40 MG/0.4 ML SYR SC SCH (17:20)
--- NOTE | 2018-04-08 19:00 | NUR ---
Report received from AM RN Chen.Patient received comfortably resting on her bed. Denied pain and no SOB. No respiratory distress noted. Respiration even and unlabored. Bed in lower position,locked. Call ulloa within reach. Will continue to monitor.
[2018-04-09 00:38] VITALS: BP 140/79
[2018-04-09] MEDS: SODIUM CHLORIDE 0.9% 1000ML 1,000 ML IV SCH ×3 (03:17→17:24)
[2018-04-09 05:05] VITALS: BP 132/70
[2018-04-09] MEDS: METRONIDAZOLE 500MG/NS 100ML 100 ML IV SCH (05:14)
--- NOTE | 2018-04-09 07:03 | NUR ---
Report given to oncoming TRENTON Brizuela, walking round done.
[2018-04-09 08:00] VITALS: BP 129/68
[2018-04-09 09:00] VITALS: BP 129/68
[2018-04-09] MEDS: BALSAM PERU/CASTOR OIL 60 GM OINT...G. TP SCH (09:00)
[2018-04-09] MEDS: NYSTATIN 15 GM POWDER UD BTL TOP SCH (09:00)
[2018-04-09] MEDS: MEROPENEM 1GRAM 1 GM in SODIUM CHLORIDE 0.9% 100 ML 100 ML IV SCH (09:58)
[2018-04-09] MEDS: POTASSIUM CHLORIDE 20 MEQ TAB CR PO SCH (09:59)
--- NOTE | 2018-04-09 12:43 | Progress Note ---
DATE: April 09, 2018 CARDIOLOGY PROGRESS NOTE SUBJECTIVE: Patient is without any complaints this morning. She does endorse being very thirsty and occasionally nauseated. Denies any chest pain or shortness of breath. OBJECTIVE VITAL SIGNS: Temperature 97.9, pulse 80, respiratory rate 18, blood pressure 129/68, oxygen saturation 94% on 3 liters nasal cannula. GENERAL: Alert and oriented x2, resting comfortably in bed. Daughter at the bedside. Does not appear to be in any acute distress. CARDIOVASCULAR: Regular rate and rhythm. Systolic ejection murmur 2/6 present. LUNGS: Diminished breath sounds posterior lower lobes. Otherwise, clear to auscultation. No wheezing. No crackles or rhonchi. ABDOMEN: Soft, nontender. LOWER EXTREMITIES: Trace edema bilaterally. CARDIOVASCULAR MEDICATIONS: Lovenox 40 mg subcutaneous daily. LABS: No new labs today. TELEMETRY: Sinus rhythm. IMPRESSION 1. Sepsis. 2. Leukocytosis. 3. Hydronephrosis. 4. Hypertension. 5. Aortic sclerosis. 6. Mitral annular calcification. RECOMMENDATIONS: Continue monitoring this patient on telemetry. From a cardiovascular standpoint, this patient continues to be doing well. Continue management of infection per infectious disease and also urology following. Continue antimicrobial therapy as indicated. This patient has urine cultures showing gram-negative bacilli. There are no indications for a NILDA at this time. We will continue to monitor. Dictated by: Lore Mishra NP Job#: [id number] LPA
[2018-04-09] MEDS ORDERED: POTASSIUM CHLORIDE 20 MEQ TAB CR PO ONE (14:00)
--- NOTE | 2018-04-09 14:36 | Progress Note ---
DATE: April 09, 2018 INTERNAL MEDICINE PROGRESS NOTE SUBJECTIVE: Patient came here with sepsis secondary to UTI. He just underwent cystoscopy and retrograde and removal of the stone from the proximal ureter with a stent in the right ureter. PHYSICAL EXAMINATION VITAL SIGNS: Blood pressure 129/68, temperature 97.9, heart rate 80 per minute, respiratory rate 18 per minute, oxygen saturation 94%. HEART: Regular rhythm. Normal S1, S2 sounds. LUNGS: Clear bilaterally. ABDOMEN: Soft. EXTREMITIES: Show no evidence of cyanosis, edema, or trauma. LABS: On the BMP, sodium 138, potassium 3.4, chloride 106, CO2 of 25, BUN 28, creatinine 1.64, glucose 82. On the CBC, white blood count 27,300, hemoglobin 10.6, hematocrit 31.7, platelet count 180,000. AST 16, ALT 10, total bilirubin 0.4, alkaline phosphatase 59. FINAL IMPRESSION 1. Sepsis. 2. Acute renal failure. 3. Right hydronephrosis. 4. Urinary tract infection. 5. Chronic anemia. 6. Hypokalemia. PLAN OF TREATMENT: Continue meropenem daily. Continue IV fluids at 100 mL an hour. Replace the potassium. Recheck the potassium and magnesium level tomorrow. Job#: [id number] BRYON
[2018-04-09] MEDS: ENOXAPARIN SOD INJ 40 MG/0.4 ML SYR SC SCH (17:22)
--- NOTE | 2018-04-09 19:00 | NUR ---
Report received. Assumed care. Assessment done. See interventions. Redness observed in mekhi area and beneath breasts.
[2018-04-09 20:00] VITALS: BP 160/83
--- NOTE | 2018-04-09 22:06 | NUR ---
Refused to have blood drawn for cardiacs.
--- NOTE | 2018-04-09 22:16 | NUR ---
Hx of recurrent C Diff colitis. Placed in isolation.
[2018-04-09 23:33] VITALS: BP 139/71
[2018-04-10] VITALS (7 sets, daily range): BP systolic 124–167; BP diastolic 61–90
[2018-04-10] MEDS: SODIUM CHLORIDE 0.9% 1000ML 1,000 ML IV SCH (03:43)
--- NOTE | 2018-04-10 05:00 | NUR ---
Cleaned for mod loose brown stool. Partial bath given.
[2018-04-10 05:26] LABS: BASOPHILS % 0.2 % (0.0-1.0); EOSINOPHILS # (AUTO) 0.1 (0.0-0.4); EOSINOPHILS % 0.6 % (0.0-6.0); HEMATOCRIT 31.3 % (34.2-44.1); HEMOGLOBIN 10.7 g/dL (12.0-16.0); LYMPHOCYTES # (AUTO) 1.6 (1.0-3.2); LYMPHOCYTES % 12.1 % (18.0-39.1); MEAN CORPUSCULAR HEMOGLOBIN 30.8 pg (28-32); MEAN CORPUSCULAR HGB CONC 34.2 g/dL (31-35); MEAN CORPUSCULAR VOLUME 90.2 fL (81-99); MONOCYTES # (AUTO) 1.3 (0.2-0.8); MONOCYTES % 9.3 % (4.4-11.3); NEUTROPHILS # (AUTO) 10.4 (2.1-6.9); NEUTROPHILS % 76.8 % (38.7-80.0); PLATELET COUNT 164 x10e3/uL (140-360); RED BLOOD COUNT 3.47 x10e6/uL (3.6-5.1); RED CELL DISTRIBUTION WIDTH 17.6 % (11.7-14.4)
[2018-04-10 05:51] LABS: ANION GAP 9.5 mmol/L (8-16); BLOOD UREA NITROGEN 20 mg/dL (7-26); BUN/CREATININE RATIO 29 (6-25); CALCIUM 8.3 mg/dL (8.4-10.2); CARBON DIOXIDE 26 mmol/L (22-29); CHLORIDE 109 mmol/L (98-107); CREATININE, SERUM 0.69 mg/dL (0.57-1.11); EST GLOMERULAR FILTRATION RATE > 60 ML/MIN (60-); GLUCOSE 76 mg/dL (74-118); POTASSIUM 3.5 mmol/L (3.5-5.1); SODIUM 141 mmol/L (136-145)
[2018-04-10] MEDS: MEROPENEM 1GRAM 1 GM in SODIUM CHLORIDE 0.9% 100 ML 100 ML IV SCH (09:00)
[2018-04-10] MEDS: NYSTATIN 15 GM POWDER UD BTL TOP SCH (09:09)
[2018-04-10] MEDS: BALSAM PERU/CASTOR OIL 60 GM OINT...G. TP SCH (09:09)
[2018-04-10] MEDS: POTASSIUM CHLORIDE 20 MEQ TAB CR PO SCH (09:59)
--- NOTE | 2018-04-10 11:41 | Progress Note ---
DATE: April 10, 2018 CARDIOLOGY PROGRESS NOTE SUBJECTIVE: Patient is without any complaints this morning. She states that she feels well. Denies any chest pain or shortness of breath. OBJECTIVE VITAL SIGNS: Temperature 98.9, pulse 84, respiratory rate 18, blood pressure 152/90, oxygen saturation 96% on 1 liter nasal cannula. GENERAL: Alert and oriented x3, resting comfortably in bed. Does not appear to be in any acute distress. LUNGS: Diminished breath sounds anterior and posterior lower lobes. Otherwise, clear to auscultation. No wheezing, no rhonchi or crackles. CARDIOVASCULAR: Regular rate and rhythm. Systolic murmur present 2/6 grade. ABDOMEN: Soft, nontender. Normoactive bowel sounds. LOWER EXTREMITIES: Trace edema bilaterally. CARDIOVASCULAR MEDICATIONS: Lovenox 40 mg subcutaneous daily. LABS: WBC 13.51, hemoglobin 10.7, hematocrit 31.3, platelets 164. Sodium 141, potassium 3.5, BUN 20, creatinine 0.69, glucose 76. TELEMETRY: Sinus rhythm. IMPRESSION: 1. Sepsis. 2. Leukocytosis which is improving. 3. Hydronephrosis. 4. Hypertension. 5. Aortic sclerosis. 6. Mitral valve annular calcification. PLAN: Continue the above-listed cardiac medications. Continue to monitor patient on telemetry. From a cardiac standpoint, this patient is doing well. Continue management by infectious disease and urology and antimicrobial therapy as indicated. There are no indications for PE at this time. Cultures showed gram-negative bacilli. We will continue to follow closely. Dictated by: Lore Mishra NP Job#: [id number] DANIKA
[2018-04-10] MEDS ORDERED: MAGNESIUM SULFATE 2GM/50ML 100 ML IV ONE (13:00)
--- NOTE | 2018-04-10 13:57 | Progress Note ---
DATE: April 10, 2018 INTERNAL MEDICINE PROGRESS NOTE SUBJECTIVE: The patient is doing better. PHYSICAL EXAM VITAL SIGNS: Blood pressure 147/74. Temperature 98.3, heart rate 78 per minute, respiratory rate 18 per minute, oxygen saturation 97%. HEART: Regular rhythm. Normal S1, S2 sounds. LUNGS: Clear bilaterally. ABDOMEN: Soft. LABORATORY DATA: On the BMP, sodium 141, potassium 3.5, chloride 109, CO2 of 36, BUN 20, and creatinine 0.69. Glucose 76. Magnesium 1.3. On the CBC, white blood count 13.5, hemoglobin 10.7, hematocrit 31.3, platelet count 164, 000. AST 16, ALT 10, total bilirubin 0.4, alkaline phosphatase 59. FINAL IMPRESSION 1. Sepsis. 2. Pyelonephritis. 3. Status post stent placement on the right ureteral and ureteral stone removal. 4. Hypomagnesemia. 5. Extended-spectrum beta-lactamases, urinary tract infection. PLAN OF TREATMENT: Continue meropenem 500 mg IV daily. We are going to discontinue normal saline. Continue potassium 40 mEq daily. Lovenox 40 mg subcutaneous daily for DVT prophylaxis, Balsam Salvisa castor oil daily, daily. We are going to replace the magnesium with 4 g of magnesium today and recheck magnesium, CBC, and a BMP tomorrow. Job#: [id number] ROMULO
[2018-04-10] MEDS: ENOXAPARIN SOD INJ 40 MG/0.4 ML SYR SC SCH (17:13)
--- NOTE | 2018-04-10 19:30 | NUR ---
patient recieved awake, alert, lying quietly in bed. vss. no c/o pain noted at this time. patient turned and repositioned for comfort. blanchable redness noted to sacrum with allevyn foam dressing applied. pm assessment complete. daughter noted at the bedside. patient/daughter instructed to call for assistance when needed.
--- NOTE | 2018-04-10 23:26 | NUR ---
report called to Tete CHOWDHURY. Patient transfered to room 292 via bed at this time.
[2018-04-11] VITALS (9 sets, daily range): BP systolic 151–178; BP diastolic 75–90
[2018-04-11 05:50] LABS: BASOPHILS % 0.4 % (0.0-1.0); EOSINOPHILS # (AUTO) 0.2 (0.0-0.4); EOSINOPHILS % 1.6 % (0.0-6.0); HEMATOCRIT 33.1 % (34.2-44.1); HEMOGLOBIN 10.9 g/dL (12.0-16.0); LYMPHOCYTES # (AUTO) 1.6 (1.0-3.2); LYMPHOCYTES % 14.8 % (18.0-39.1); MEAN CORPUSCULAR HEMOGLOBIN 30.1 pg (28-32); MEAN CORPUSCULAR HGB CONC 32.9 g/dL (31-35); MEAN CORPUSCULAR VOLUME 91.4 fL (81-99); MONOCYTES # (AUTO) 1.3 (0.2-0.8); MONOCYTES % 12.4 % (4.4-11.3); NEUTROPHILS # (AUTO) 7.3 (2.1-6.9); NEUTROPHILS % 69.7 % (38.7-80.0); PLATELET COUNT 192 x10e3/uL (140-360); RED BLOOD COUNT 3.62 x10e6/uL (3.6-5.1); RED CELL DISTRIBUTION WIDTH 17.1 % (11.7-14.4)
--- NOTE | 2018-04-11 07:23 | NUR ---
PT RESTING .DENIES PAIN NO ACUTE DISTRESS NOTED .REPORT GIVEN TO THE ON COMING NURSE .CONTINUE TO MONITOR
--- NOTE | 2018-04-11 07:41 | NUR ---
PATIENT IS AWAKE, CONFUSED, AND IN STABLE CONDITION WITH NO S/S OF RESPIRATORY DISTRESS. NO PAIN VOICED. BLANCHABLE REDNESS NOTED TO UPPER AND LOWER BUTTOCK BILATERALLY- ALLEVYN PAD APPLIED. SCD'S AND HEEL PROTECTORS APPLIED TO BILATERAL FEET. VILLATORO INTACT. BED ALARM ON. CALL LIGHT IS WITHIN REACH, INSTRUCTED TO CALL FOR ASSISTANCE NEEDED.
[2018-04-11] MEDS: NYSTATIN 15 GM POWDER UD BTL TOP SCH (08:05)
[2018-04-11] MEDS: BALSAM PERU/CASTOR OIL 60 GM OINT...G. TP SCH (08:05)
[2018-04-11] MEDS ORDERED: SODIUM CHLORIDE 0.9% 250ML 250 ML ONE (08:58)
--- NOTE | 2018-04-11 09:04 | Progress Note ---
DATE: April 11, 2018 Ms. Zurita is an 82-year-old senior living patient with a history of hypertension and back pain came to the emergency room with elevated white count. She was not feeling good. She has been worked up. She was found to have nephrolithiasis and hydronephrosis. She underwent a stent placement. She also was found to have a UTI with ESBL E. coli. She is on IV meropenem. PHYSICAL EXAMINATION GENERAL: Today, she is awake. She is a little confused. VITALS: Temperature is 99, blood pressure 170/87. HEART: Regular rate. LUNGS: Clear to auscultation. ABDOMEN: Soft. BLOOD WORK: Potassium 3.5, creatinine is 0.69, glucose is 76. White count is 10.4, hemoglobin 10.9, hematocrit is 33.1. Urine culture showed ESBL E. coli. CT scan showed several kidney stones with right nephrolithiasis and right hydronephrosis. The patient went for a stent. She had a stent placed. ASSESSMENT AND PLAN 1. Sepsis secondary to urinary tract infection. 2. Urinary tract infection with extended spectrum beta-lactamase Escherichia coli. 3. Right nephrolithiasis and right hydronephrosis, status post stent. 4. Leukocytosis, resolving. 5. Hypertension. 6. Back pain. 7. Dementia. PLAN: At the present time, is to continue to monitor white count and electrolytes. She is on IV meropenem. She is on DVT prophylaxis. Disposition is going to depend on how many days the patient needs the IV antibiotics. Will discuss this with infectious disease. Discharge soon if the patient is stable. Job#: [id number] BENJAMIN
[2018-04-11] MEDS: MEROPENEM 1GRAM 1 GM in SODIUM CHLORIDE 0.9% 100 ML 100 ML IV SCH (09:11)
[2018-04-11] MEDS: MEGACE 400MG/ 10ML CUP PO SCH (09:11)
[2018-04-11] MEDS: POTASSIUM CHLORIDE 20 MEQ TAB CR PO SCH (09:11)
--- NOTE | 2018-04-11 12:34 | NUR ---
SPOKE WITH PATIENT AND FAMILY WHOM STATE [facility]. WILL FAX CLINICALS TO THEM AND START PROCESS FOR INSURANCE APPROVAL.
--- NOTE | 2018-04-11 12:59 | NUR ---
SPOKE WITH KRISTI SYLVESTER IN ADMISSIONS [phone], [id number] [facility], [facility] [address] FAX NUMBER IS [phone] TO LET KNOW CLINICALS WERE ON WAY.
[2018-04-11] MEDS: ENOXAPARIN SOD INJ 40 MG/0.4 ML SYR SC SCH (16:09)
--- NOTE | 2018-04-11 19:22 | NUR ---
PATIENT IS RESTING IN BED- IN STABLE CONDITION WITH NO S/S OF RESPIRATORY DISTRESS. NO PAIN VOICED. SCD'S APPLIED; HEEL PROTECTORS APPLIED. BED ALARM ON. CALL LIGHT IS WITHIN REACH, INSTRUCTED TO CALL FOR ASSISTANCE NEEDED. REPORT GIVEN TO ONCOMING NURSE.
--- NOTE | 2018-04-11 19:57 | NUR ---
RECEIVED PT IN BED AOX3 .RESPIRATIONS ARE EVEN AND UNLABORED .F/C INTACT AND DRAINING CLEAR YELLOW URINE CALL LIGHT WITH IN REACH .CONTINUE TO MONITOR
[2018-04-12] VITALS (7 sets, daily range): BP systolic 117–172; BP diastolic 59–84
--- NOTE | 2018-04-12 00:42 | Progress Note ---
DATE: April 11, 2018 CARDIOLOGY PROGRESS NOTE SUBJECTIVE: No major events overnight. OBJECTIVE: VITAL SIGNS: Temperature 98.5, pulse 79, respiratory rate 18, blood pressure 151/81, satting 95% on 2 liters nasal cannula. GENERAL: In no acute distress, well developed, well nourished. CARDIOVASCULAR: Regular rate and rhythm. No murmurs, rubs, or gallops. LUNGS: Clear to auscultation anteriorly. Diminished breath sounds at the bases. ABDOMEN: Soft, nontender. NEURO AND PSYCH: Alert and oriented to person, place, and time. Normal affect. CARDIOVASCULAR MEDICATIONS: Reviewed. LABORATORY DATA: Reviewed. TELEMETRY DATA: Shows normal sinus rhythm. ASSESSMENT: 1. Sepsis. 2. Leukocytosis. 3. Hydronephrosis. 4. Hypertension. 5. Aortic stenosis. 6. Mitral annular calcification. PLAN: Continue current cardiovascular medications. Continue to monitor on telemetry. Thank you for this consult. Will continue to follow. Job#: [id number]
--- NOTE | 2018-04-12 06:59 | NUR ---
PT RESTING .DENIES PAIN NO ACUTE DISTRESS NOTED LEFT AC RED DUE TO IV PLACEMENT ..CALL LIGHT WITH IN REACH .CONTINUE TO MONITOR
--- NOTE | 2018-04-12 07:05 | NUR ---
handoff report rec'd during walking rounds with outgoing material handler 2nd shift nurse. Pt sleeping at this time with even and unlabored respirations. NAD observed.
[2018-04-12] MEDS: NYSTATIN 15 GM POWDER UD BTL TOP SCH (09:05)
[2018-04-12] MEDS: POTASSIUM CHLORIDE 20 MEQ TAB CR PO SCH (09:05)
[2018-04-12] MEDS: MEGACE 400MG/ 10ML CUP PO SCH (09:05)
[2018-04-12] MEDS: MEROPENEM 1GRAM 1 GM in SODIUM CHLORIDE 0.9% 100 ML 100 ML IV SCH (09:05)
[2018-04-12] MEDS: BALSAM PERU/CASTOR OIL 60 GM OINT...G. TP SCH (10:14)
--- NOTE | 2018-04-12 11:51 | NUR ---
CALL PLACED TO DR RICO AT THIS TIME TO INFORM OF ELEVATED BP AND NO HOME MEDICATIONS RESUMED. Addendum: 04/12/18 at 1153 by Uzma Johnston RN AWAITING CALL BACK
--- NOTE | 2018-04-12 12:04 | NUR ---
Orders rec'd from Dr. Raul Peterson to resume BP medications, Losartan and Hydralazine.
[2018-04-12] MEDS ORDERED: MEROPENEM 1GRAM 1 GM in SODIUM CHLORIDE 0.9% 100 ML 100 ML IV SCH (14:00)
--- NOTE | 2018-04-12 16:19 | NUR ---
Transfer report called to TRENTON Hinkle @ [facility] [phone].
--- NOTE | 2018-04-12 16:26 | NUR ---
REC'D [facility] FOR [facility] ROOM [address] DR PAULA CM CALLED AND GOT CHOICE LETTER FROM DAUGHTER LASHAE GRANDA PLACED IN CHART RTF DONE AND GIVEN TO NURSE WITH NUMBER TO CALL REPORT IMM EXPLAINED, CONSENTED OVER PHONE AND COPY TO CHART FROM DTR LASHAE GRANDA PT CONFUSED AND UNABLE TO GIVE HER OWN CONSENTS
[2018-04-12] MEDS: ENOXAPARIN SOD INJ 40 MG/0.4 ML SYR SC SCH (16:39)
[2018-04-12] MEDS ORDERED: HYDRALAZINE HCL 25 MG TAB PO SCH (17:00)
--- NOTE | 2018-04-12 17:09 | Discharge Summary ---
HOSPITAL COURSE: Ms. Zurita is an 82-year-old female with history of back pain, hypertension, senior care resident. Came to the emergency room because she was found to have elevated white cells. She was found to have nephrolithiasis, hydronephrosis. Went for a stent placement. Urine culture shows ESBL E. coli sensitive to Cipro. So, the plan is to send her back to the senior care to continue p.o. antibiotics. PHYSICAL EXAM: GENERAL: Today she is awake and alert. She is feeling better. VITAL SIGNS: Temperature is 98.6, blood pressure 147/69. HEART: Regular rate. LUNGS: Clear to auscultation. ABDOMEN: Soft. BLOOD WORK: Potassium 3.5, creatinine 0.69, glucose is 76. White count 10.4, hemoglobin 10.9, hematocrit 33.1. The CT scan had showed right nephrolithiasis with right hydronephrosis. DISCHARGE DIAGNOSES: 1. Sepsis secondary to urinary tract infection 1. Urinary tract infection with extended-spectrum beta-lactamase Escherichia coli. 2. Right nephrolithiasis and right hydronephrosis status post stent placement. 3. Leukocytosis, resolved. 4. Hypertension. 5. Back pain. 6. Dementia. PLAN AT THE PRESENT TIME: To discharge the patient back to the senior care if okay with the consultants. Continue all her medications. She is also going to be on Cipro 250 mg twice a day for 2 weeks. Pyridium 200 mg t.i.d. with food for bladder discomfort. She is to continue all her other medications. All this was discussed with patient. All questions were answered to satisfaction. Please see home medication reconciliation list. Job#: [id number] EV
--- NOTE | 2018-04-12 19:48 | NUR ---
PT IS DISCHARGED TO [facility] TO AT 1924 BY THE AMBULANCE .PERSONAL BELONINGS ARE GIVEN TO THE PT .
[2018-04-13] MEDS ORDERED: LOSARTAN POTASSIUM 25 MG TAB PO SCH ×2 (09:00)
--- NOTE | 2018-05-16 12:49 | Operative Report ---
DATE OF PROCEDURE: 04/08/2018 SURGEON: Jere Ayala MD PREOPERATIVE DIAGNOSES: 1. Right ureterolithiasis. 2. Right hydronephrosis due to stone. 3. Urinary tract infection. POSTOPERATIVE DIAGNOSES: 1. Right ureterolithiasis. 2. Right hydronephrosis due to stone. 3. Urinary tract infection. 4. Mild cystocele. 5. Mild rectocele. 6. Atrophic (senile) vaginitis. OPERATION PERFORMED: 1. Cystourethroscopy with bilateral ureteral catheterization and retrograde ureteropyelography (surgery performed for the urinary tract infections). 2. Interpretation of retrograde ureteropyelography. 3. Supervision of fluoroscopy, no radiologist present. 4. Cystourethroscopy with right ureteral catheterization with stone manipulation and pushing the stone proximally from the ureter into the renal pelvis. 5. Radiological services for interpretation of stone manipulation. 6. Cystourethroscopy with insertion of right indwelling ureteral stent (surgery was performed for the diagnosis of hydronephrosis). 7. Pelvic examination under anesthesia. ANESTHESIA: General. COMPLICATIONS: None. CLINICAL SUMMARY: Please refer to consultation dictation from the same date. OPERATIVE PROCEDURE IN DETAIL: Informed consent was verified. Daiana Zurita was properly identified, taken to the operating room, and placed on the cystoscopy table in supine position. Anesthesia was uneventfully began. The patient was then carefully and gently repositioned in the dorsal lithotomy position with all pressure points well padded. Her genitalia were prepared and draped in usual sterile fashion. A 22.5 -Sinhala cystoscope sheath with obturator in place was atraumatically inserted into the patient's urethra and the bladder was drained. Panendoscopy of the urinary bladder revealed some signs of cystitis with multiple reddish spots throughout the bladder. There were no suspicious lesions and there were no stones. An 8-Sinhala ureteral catheter was used to cannulate the left ureter and retrograde ureteropyelograms were performed. It was then inserted into the right ureter and retrograde ureteropyelograms were performed. Interpretation of Retrograde Ureteropyelography: Contrast was instilled in a retrograde fashion bilaterally. The left side was unremarkable. There were no tumors, no stones, no diverticula. Unobstructed drainage was observed fluoroscopically. On the right hand side ureter which was normal until the proximal portion, which there was an obstructing stone with proximal hydroureteronephrosis. A guidewire was then placed into the right ureter and guided to the level of the patient's kidney. We utilized open-ended catheter. We brought it through the level of the patient's proximal ureter stone and tapped on it, dislodged it and it floated immediately into the patient's renal pelvis. We obtained a drip and sent it for culture and sensitivity. With cystoscopic and fluoroscopic guidance, the right-sided indwelling ureteral stent was then placed. It was curled in the patient's kidney as well as the patient's bladder. The retaining suture was cut short. The patient's bladder was drained and the cystoscope was withdrawn. Pelvic examination under anesthesia revealed grade 1 cystocele, grade 1 rectocele, there was atrophic vaginitis, no abnormal palpable pelvis masses could be appreciated, there were no obvious mucosal lesions. The patient was then uneventfully reversed from anesthesia and taken to the recovery room in stable condition. There were no complications during the procedure. She tolerated the procedure well. We will plan to proceed with postoperative care, monitor the patient, await on cultures, and of course follow the patient indefinitely. Plans will be to return the patient to the operating room electively as an outpatient for ureteroscopy and holmium laser lithotripsy. The patient's stone seems to be radiolucent and therefore the patient would not be an ideal ESWL candidate. Jere Ayala MD [place]/MODL /[id number] cc: Chata Bustos MD
== END 2018-04-12 19:34 | DRG 854 ==
LOC: ER 16:31 → ERHOLD 17:51 → IMCU 21:00 → MED/SURG3 04-10 23:32
PROVIDERS: ADMIT Internal Medicine; ATTEND Internal Medicine
PROC: 0TC68ZZ Extirpation of Matter from Right Ureter, Via Natural or Artificial Opening Endoscopic (ICD-10-PCS; 2018-04-08)
PROC: 0T768DZ Dilation of Right Ureter with Intraluminal Device, Via Natural or Artificial Opening Endoscopic (ICD-10-PCS; 2018-04-08)
PROC: BT141ZZ Fluoroscopy of Kidneys, Ureters and Bladder using Low Osmolar Contrast (ICD-10-PCS; principal; 2018-04-08 14:38)
DX: A41.51 Sepsis due to Escherichia coli [E. coli] (principal); N39.0 Urinary tract infection, site not specified; N13.6 Pyonephrosis; N17.9 Acute kidney failure, unspecified; I10 Essential (primary) hypertension; J40 Bronchitis, not specified as acute or chronic; R19.7 Diarrhea, unspecified; M54.9 Dorsalgia, unspecified; Z86.711 Personal history of pulmonary embolism; K57.90 Diverticulosis of intestine, part unspecified, without perforation or abscess without bleeding; F03.90 Unspecified dementia, unspecified severity, without behavioral disturbance, psychotic disturbance, mood disturbance, and anxiety; I70.0 Atherosclerosis of aorta; Z87.891 Personal history of nicotine dependence; N28.1 Cyst of kidney, acquired; D64.9 Anemia, unspecified; E83.51 Hypocalcemia; N81.10 Cystocele, unspecified; N81.6 Rectocele; N95.2 Postmenopausal atrophic vaginitis; Z16.12 Extended spectrum beta lactamase (ESBL) resistance; E87.6 Hypokalemia
CPT/HCPCS: 36415; 71045; 71250; 74176; 74420; 80048; 80053; 81001; 82550; 82553; 82948; 83605; 83735; 84484; 85025; 87040; 87086; 87186; 93306; 96367; 96372; 97139; 99284; C2617; J0692; J1100; J1650; J2001; J2185; J2405; J3370; J3475; J3480; J7030; J7050; J7799

== ENCOUNTER → 2018-11-18 | Day surgery (SDC) | payer MEDICARE ==
[~2018-11-18] MED LIST changes: +B&O 60MG R/S 60 MG SUPP PR ONE; +CEFTRIAXONE SOD 1 GM/NS 50 ML 50 ML IV ONE; +DEXAMETHASONE SOD PHOS INJ 4 MG/ML VIAL ONE; +EPHEDRINE SULFATE INJ 50 MG/10 ML SYR ONE; +FENTANYL CITRATE/PF 100MCG/2 ML INJ ONE; +GENTAMICIN 80MG/NS 100 ML 100 ML IV ONE; +IOPAMIDOL 610MG/1ML 300 MG/ML VIAL IV ONE; +LIDOCAINE HCL 2% LOCAL INJ 5 ML SDV VIAL INJ ONE; +MEPERIDINE HCL INJ 25 MG/ML VIAL ONE; +MEROPENEM 1GM 100 ML IV ONE; +ONDANSETRON HCL INJ 2MG/ML 2ML 2 MG/ML VIAL ONE; +POTASSIUM CHLO20 ME1 PO; +PROPOFOL IV EMULSION 10 MG/ML 20 ML VIAL ONE; +SEVOFLURANE INHAL SOLN 250 ML PEN BTL ONE
--- OUTSIDE RECORDS SUMMARY | 2018-11-18 10:10 | XMS REPORT | Continuity of Care Document ---
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 Name Role Phone Arieso Information [employer] Unavailable Unavailable Problems Problem Status Onset Date Classification Date Reported Comments Source [id number] Active 06/05/2014 [facility] ELEVATED BLOOD PRESSURE Active 03/28/2014 [facility] Discharge Diagnosis: Hypertension 03/28/2014 03/31/2014 [facility] SPLIT [id number] Active 02/08/2014 [facility] 415.19 ACUTE PULMONARY EMBOLISM Active 12/14/2013 [facility] Hypertensive disorder, systemic arterial (disorder) Active Problem 06/15/2014 [facility] Pulmonary embolism (disorder) Resolved Problem 06/15/2014 [facility] Medications Medication Details Route Status Patient Instructions Ordering Provider Order Date Source Metoprolol Tartrate 25 mg oral tablet 25 mg=1 tab, PO, Daily, Please hold this medication if your systolic BP is less than 160, # 30 tab, 0 Refill(s)Special Instructions: Please hold this medication if your systolic BP is less than 160 Active 03/29/2014 [facility] Metoprolol 5 mg, 5 mL, Route: IVP, Drug form: INJ, ONCE, Dosing Weight 101.818, kg, Priority: STAT, Start date: 03/28/14 23:51:00, Stop date: 03/28/14 23:51:00Notes: (Same as: Lopressor) Push over 2 minutes No Longer Active 03/29/2014 [facility] Nitroglycerin 0.4 mg, 1 tab, Route: SL, Drug form: TAB, Q5Min, Dosing Weight 101.818, kg, PRN Chest Pain, Start date: 03/28/14 23:41:00, Duration: 3 doses or times, Stop date: Limited # of timesNotes: (Same as:Nitroquick, Nitrostat) "Do Not Crush" Sublingual tablet No Longer Active 03/29/2014 [facility] aspirin 324 mg, 4 tab, Route: PO, Drug form: CHEWTAB, ONCE, Dosing Weight 101.818, kg, Priority: STAT, Start date: 03/28/14 23:41:00, Stop date: 03/28/14 23:41:00Notes: Take with food. No Longer Active 03/29/2014 [facility] Saline Flush 0.9% 10 mL, Route: IVP, Drug Form: INJ, Dosing Weight 101.818, kg, PRN, PRN Line Flush, Start date: 03/28/14 23:41:00, Duration: 30 day, Stop date: 04/27/14 23:40:00Notes: (Same as: BD Posiflush) No Longer Active 03/29/2014 [facility] Sodium Chloride 0.154 MEQ/ML Injectable Solution 1,000 mL, 1000 ml/hr, Infuse Over: 1 hr, Route: IV, 1,000, Drug form: INJ, ONCE, Priority: STAT, Dosing Weight 101.818 kg, Start date: 03/28/14 23:41:00, Duration: 1 doses or times, Stop date: 03/28/14 23:41:00 No Longer Active 03/29/2014 [facility] Allergies, Adverse Reactions, Alerts Substance Category Reaction Severity Reaction type Status Date Reported Comments Source sulfa drugs Assertion Drug allergy Active [facility] Immunizations No Data Provided for This Section Results Order Name Results Value Reference Range Date Interpretation Comments Source CARDIAC ENZYMES CK MB Index 2.5 0.0 - 2.5 03/29/2014 [facility] CARDIAC ENZYMES CK MB 4.5 0.5 - 3.6 03/29/2014 [facility] CARDIAC ENZYMES Total CK 177 12 - 191 03/29/2014 [facility] CARDIAC ENZYMES Troponin-I <0.02 0.00 - 0.40 03/29/2014 [facility] CHEM PANEL eGFR 82 03/29/2014 <sup>1</sup>Result Comment: The eGFR is calculated using the CKD-EPI formula. In most young, healthy individuals the eGFR will be >90 mL/min/1.73m2. The eGFR declines with age. An eGFR of 60-89 may be normal in some populations, particularly the elderly, for whom the CKD-EPI formula has not been extensively validated. Use of the eGFR is not recommended in the following populations:& lt;br/>
Individuals with unstable creatinine concentrations, including patients [...] should be multiplied by the estimated BMI. [facility] CHEM PANEL AST 19 0 - 37 03/29/2014 [facility] CHEM PANEL ALT 21 0 - 65 03/29/2014 [facility] CHEM PANEL Alk Phos 71 39 - 136 03/29/2014 [facility] CHEM PANEL Bili Total 0.5 0.2 - 1.3 03/29/2014 [facility] CHEM PANEL AGAP 9.7 10.0 - 20.0 03/29/2014 [facility] CHEM PANEL Globulin 3.8 2.0 - 4.0 03/29/2014 [facility] CHEM PANEL B/C Ratio 20 6 - 25 03/29/2014 [facility] CHEM PANEL A/G Ratio 1.0 0.7 - 1.6 03/29/2014 [facility] CHEM PANEL BUN 14 7 - 22 03/29/2014 [facility] CHEM PANEL Sodium Lvl 140 135 - 145 03/29/2014 [facility] CHEM PANEL Chloride Lvl 106 95 - 109 03/29/2014 [facility] CHEM PANEL Potassium Lvl 3.7 3.5 - 5.1 03/29/2014 [facility] CHEM PANEL CO2 28 24 - 32 03/29/2014 [facility] CHEM PANEL Albumin Lvl 3.7 3.5 - 5.0 03/29/2014 [facility] CHEM PANEL Creatinine Lvl 0.7 0.5 - 1.4 03/29/2014 [facility] CHEM PANEL Total Protein 7.5 6.4 - 8.4 03/29/2014 [facility] CHEM PANEL Calcium Lvl 9.6 8.5 - 10.5 03/29/2014 [facility] CHEM PANEL Glucose Lvl 88 70 - 99 03/29/2014 <sup>2</sup>Interpretive Data: Adult reference range values reflect the clinical guidelines
of the [place] [employer]. [facility] HEMATOLOGY Segs 55.6 45.0 - 75.0 03/29/2014 [facility] HEMATOLOGY Segs-Bands # 4.1 1.5 - 8.1 03/29/2014 [facility] HEMATOLOGY Lymphocytes # 2.5 1.0 - 5.5 03/29/2014 [facility] HEMATOLOGY Monocytes 9.0 2.0 - 12.0 03/29/2014 [facility] Lymphocytes 32.8 20.0 - 40.0 03/29/2014 [facility] Monocytes # 0.7 0.0 - 0.8 03/29/2014 [facility] HEMATOLOGY Eosinophils # 0.1 0.0 - 0.5 03/29/2014 [facility] Basophils # 0.1 0.0 - 0.2 03/29/2014 [facility] Eosinophils 1.8 0.0 - 4.0 03/29/2014 [facility] Basophils 0.8 0.0 - 1.0 03/29/2014 [facility] Hct 45.9 36.0 - 48.0 03/29/2014 [facility] WBC 7.5 3.7 - 10.4 03/29/2014 [facility] RBC 4.75 4.20 - 5.40 03/29/2014 [facility] Hgb 15.4 12.0 - 16.0 03/29/2014 [facility] MCV 96.7 80.0 - 98.0 03/29/2014 [facility] Platelet 215 133 - 450 03/29/2014 [facility] MCH 32.5 27.0 - 31.0 03/29/2014 [facility] MCHC 33.6 32.0 - 36.0 03/29/2014 [facility] RDW 14.7 11.5 - 14.5 03/29/2014 [facility] MPV 8.7 7.4 - 10.4 03/29/2014 [facility] Pathology Reports No Data Provided for This Section Diagnostic Reports Report Value Date Source Chest 1view EXAMINATION: Chest 1view CLINICAL HISTORY: Chest pain Since 12/18/2013, no important interval change has occurred. The lungs are clear of consolidation, pleural effusion, and pneumothorax. Mild bilateral basilar subsegmental atelectasis and scarring. Emphysema is suspected in the lung apices. The heart size remains mildly enlarged. SL:17 03/29/2014 [facility] Chest 2 views HISTORY: Cough. Pulmonary embolism. Two views chest. No previous for comparison. IMPRESSION: Lungs are mildly hyperinflated. Consider underlying obstructive lung disease. Mild cardiomegaly without overt CHF. No pleural effusion or pneumothorax. SL:13 12/18/2013 [facility] Ext Lower Venous Doppler Bilat US HISTORY: Pulmonary embolism. Bilateral lower extremity venous Doppler ultrasound exam demonstrates normal compressibility and flow in the common femoral, superficial femoral and popliteal venous segments. Normal distal augmentation. IMPRESSION: No sonographic evidence for lower extremity DVT. SL:13 12/18/2013 [facility] Consultation Notes No Data Provided for This Section Discharge Summaries No Data Provided for This Section History and Physicals No Data Provided for This Section Vital Signs Vital Sign Value Date Comments Source Heart Rate 55 03/29/2014 [facility] Respitory Rate 16 03/29/2014 [facility] Temperature Oral (F) 98.8 F 03/29/2014 [facility] Systolic (mm Hg) 175 03/29/2014 [facility] Diastolic (mm Hg) 92 03/29/2014 [facility] Respitory Rate 18 03/29/2014 [facility] Systolic (mm Hg) 206 03/29/2014 [facility] Heart Rate 71 03/29/2014 [facility] Diastolic (mm Hg) 99 03/29/2014 [facility] Temperature Oral (F) 99.7 F 03/29/2014 [facility] Heart Rate 80 03/29/2014 [facility] Respitory Rate 18 03/29/2014 [facility] Diastolic (mm Hg) 133 03/29/2014 [facility] Systolic (mm Hg) 258 03/29/2014 [facility] BMI Calculated 43.84 03/29/2014 [facility] Weight 101.818 03/29/2014 [facility] Height 152.4 cm 03/29/2014 [facility] Encounters Location Location Details Encounter Type Encounter Number Reason For Visit Attending Provider ADM Date DC Date Status Source [facility] Outpatient [id number] Fernando Estrada 12/18/2013 12/19/2013 [facility] Outpatient [id number] Fernando Marquespta 03/01/2014 03/01/2014 [facility] Outpatient [id number] Fernando Estrada 03/29/2014 03/29/2014 [facility] [id number] Harris Davey 03/29/2014 03/29/2014 [facility] [id number] Harrisjacquie Davey 03/29/2014 03/29/2014 [facility] Outpatient [id number] Fernando Estrada 06/14/2014 06/14/2014 [facility] Procedures No Data Provided for This Section Assessment and Plan No Data Provided for This Section Plan of Care No Data Provided for This Section Social History Social History Date Source Social History TypeResponse Smoking Status Never smoker; Exposure to Tobacco Smoke None; Cigarette Smoking Last 365 Days No; Reg Smoking Cessation Counseling No 03/29/2014 [facility] Family History No Data Provided for This Section Advance Directives No Data Provided for This Section Functional Status No Data Provided for This Section
--- NOTE | 2018-11-18 10:51 | Diagnostic Imaging Report ---
Abdomen, 1 view. History: Preop, renal calculus. Findings: Multiple right renal calculi are present measuring up to 1.2 cm. Right internal ureteral stent is identified extending from the kidney to the region of the bladder. Air is scattered throughout nondilated small and large bowel. There are no masses. Advanced degenerative changes are present throughout the lumbar spine. IMPRESSION: Multiple right renal calculi. Right internal ureteral stent is in place. Signed by: Jose A Ku on 11/18/2018 10:48 AM
[2018-11-18 11:00] LABS: BASOPHILS % 0.5 % (0.0-1.0); EOSINOPHILS # (AUTO) 0.1 (0.0-0.4); EOSINOPHILS % 1.1 % (0.0-6.0); HEMATOCRIT 43.7 % (34.2-44.1); HEMOGLOBIN 14.1 g/dL (12.0-16.0); LYMPHOCYTES # (AUTO) 1.6 (1.0-3.2); LYMPHOCYTES % 21.9 % (18.0-39.1); MEAN CORPUSCULAR HEMOGLOBIN 30.8 pg (28-32); MEAN CORPUSCULAR HGB CONC 32.3 g/dL (31-35); MEAN CORPUSCULAR VOLUME 95.4 fL (81-99); MONOCYTES # (AUTO) 0.6 (0.2-0.8); NEUTROPHILS # (AUTO) 5.1 (2.1-6.9); NEUTROPHILS % 68.2 % (38.7-80.0); PLATELET COUNT 229 x10e3/uL (140-360); RED BLOOD COUNT 4.58 x10e6/uL (3.6-5.1); RED CELL DISTRIBUTION WIDTH 15.4 % (11.7-14.4)
[2018-11-18 11:10] LABS: ANION GAP 13.7 mmol/L (8-16); BLOOD UREA NITROGEN 14 mg/dL (7-26); BUN/CREATININE RATIO 20 (6-25); CARBON DIOXIDE 28 mmol/L (22-29); CHLORIDE 103 mmol/L (98-107); CREATININE, SERUM 0.71 mg/dL (0.57-1.11); EST GLOMERULAR FILTRATION RATE > 60 ML/MIN (60-); GLUCOSE 88 mg/dL (74-118); POTASSIUM 3.7 mmol/L (3.5-5.1); SODIUM 141 mmol/L (136-145)
[2018-11-18 14:15] VITALS: BP 187/75
--- NOTE | 2018-12-20 08:36 | Operative Report ---
DATE OF PROCEDURE: 11/18/2018 SURGEON: Jere Ayala MD PREOPERATIVE DIAGNOSES: 1. Right nephrolithiasis. 2. Right ureterolithiasis. 3. Foreign body (right indwelling ureteral stent). POSTOPERATIVE DIAGNOSES: 1. Right nephrolithiasis. 2. Right ureterolithiasis. 3. Foreign body (right indwelling ureteral stent. 4. Grade 4 cystocele. 5. Grade 1 rectocele. 6. Atrophic (senile) vaginitis. OPERATIONS PERFORMED: 1. Cystourethroscopy with complicated removal of right indwelling ureteral stent (separate procedure performed with separate scope for the diagnosis of stent). 2. Right ureteroscopy with stone manipulation (separate procedure performed for the right ureteral stone down with a separate scope). 3. Right ureteroscopy with holmium laser lithotripsy and insertion of stent (separate procedure performed for the right nephrolithiasis). 4. Radiological Services with supervision and interpretation of ureteroscopy. 5. Interpretation of retrograde ureteropyelography. 6. Pelvic examination under anesthesia. COMPLICATIONS: None. CLINICAL SUMMARY: Daiana Zurita is an 83-year-old woman, who underwent ureteral stenting. She was brought to the operating room for management of her stones. She is aware of the risks of bleeding, infection, injury to adjacent structures, need for additional procedures, and elected to proceed. OPERATIVE PROCEDURE IN DETAIL: Informed consent was verified. Daiana Zurita was properly identified, taken to the operating room, placed on the cystoscopy table in supine position. Anesthesia was uneventfully begun. The patient was then carefully gently repositioned in dorsal lithotomy position. All pressure points were well padded. Her genitalia were prepared and draped in usual sterile fashion. The cystoscope sheath with obturator in place was atraumatically inserted in the patient's urethra and bladder was drained. Panendoscopy revealed a stent that was significantly encrusted. The stent was obviously old. A guidewire was then placed alongside the stent and guided to the level of the patient's kidney. The stent was then grasped, completely removed and remarkably without any resistance. . Semi-rigid ureteroscopy was then performed. The ureteroscope was then placed alongside the guidewire up into the right ureter. We identified the stone. The stone was grasped with Nitinol tipless basket and was extracted. Secondary guidewire was placed and flexible ureteroscope was then brought up over the guidewire and guided to the level of the patient's kidney. We identified a significant amount of stone burden and much debris that was present and I could not visualize any suspicious mucosal lesions. Holmium laser lithotripsy was then performed and all significantly sized stone burden cystoscope and fluoroscopic guidance, the right-sided indwelling stent was then placed, it was coiled in the patient's kidney as well as the patient's bladder. The retaining suture was cut short. Pelvic examination under anesthesia revealed a grade 4 cystocele, grade 1 rectocele with atrophic (senile) vaginitis. No abnormal palpable pelvic masses could be appreciated. There were no obvious mucosal lesions. The patient was then uneventfully reversed from anesthesia and taken to the recovery room in stable condition. Postoperative instructions were given. We will plan on returning the patient to the operating room to remove the stent and hopefully render her stone free and stent free. MD MARCUS Rivera/ENEDINA /[id number]
== END | disposition home or self-care (01) ==
LOC: OR 10:07
PROVIDERS: ATTEND Urology
DX: N20.2 Calculus of kidney with calculus of ureter (principal); Z46.6 Encounter for fitting and adjustment of urinary device; Z96.0 Presence of urogenital implants; Z87.442 Personal history of urinary calculi; Z86.711 Personal history of pulmonary embolism; I10 Essential (primary) hypertension; E78.5 Hyperlipidemia, unspecified; F03.90 Unspecified dementia, unspecified severity, without behavioral disturbance, psychotic disturbance, mood disturbance, and anxiety; Z01.810 Encounter for preprocedural cardiovascular examination; Z01.812 Encounter for preprocedural laboratory examination; N81.10 Cystocele, unspecified; N81.6 Rectocele; N95.2 Postmenopausal atrophic vaginitis
CPT/HCPCS: 36415; 52356; 74018; 74420; 80048; 84550; 85025; 87070; 87086; 87186; 87205; 88300; 93005; C2617; J0696; J1100; J1580; J2001; J2175; J2185; J2405; J2704; J3010; Q9967

== ENCOUNTER 2019-01-20 10:54 | Inpatient (IN) | payer MEDICARE ==
[~2019-01-20] VITALS: Ht 160 cm; Wt 84.4 kg
[~2019-01-20 10:54] MED LIST changes: -B&O 60MG R/S 60 MG SUPP PR ONE; -CEFTRIAXONE SOD 1 GM/NS 50 ML 50 ML IV ONE; -DEXAMETHASONE SOD PHOS INJ 4 MG/ML VIAL ONE; -EPHEDRINE SULFATE INJ 50 MG/10 ML SYR ONE; -FENTANYL CITRATE/PF 100MCG/2 ML INJ ONE; -GENTAMICIN 80MG/NS 100 ML 100 ML IV ONE; -IOPAMIDOL 610MG/1ML 300 MG/ML VIAL IV ONE; -LIDOCAINE HCL 2% LOCAL INJ 5 ML SDV VIAL INJ ONE; -MEPERIDINE HCL INJ 25 MG/ML VIAL ONE; -MEROPENEM 1GM 100 ML IV ONE; -ONDANSETRON HCL INJ 2MG/ML 2ML 2 MG/ML VIAL ONE; -PROPOFOL IV EMULSION 10 MG/ML 20 ML VIAL ONE; -SEVOFLURANE INHAL SOLN 250 ML PEN BTL ONE
[2019-01-20] MEDS ORDERED: AZO STANDARD95 MG PO (11:41)
[2019-01-20] MEDS ORDERED: TYLENOL WITH C1 EACH PO (11:41)
[2019-01-20] MEDS ORDERED: IOPAMIDOL 300MG/ML 50ML INFUS..BTL IV ONE (11:48)
[2019-01-20] MEDS ORDERED: B&O 60MG R/S 60 MG SUPP PR ONE (11:49)
[2019-01-20 12:00] LABS: BASOPHILS % 0.7 % (0.0-1.0); EOSINOPHILS # (AUTO) 0.1 (0.0-0.4); HEMATOCRIT 45.7 % (34.2-44.1); HEMOGLOBIN 14.8 g/dL (12.0-16.0); LYMPHOCYTES # (AUTO) 1.4 (1.0-3.2); LYMPHOCYTES % 23.9 % (18.0-39.1); MEAN CORPUSCULAR HEMOGLOBIN 30.2 pg (28-32); MEAN CORPUSCULAR HGB CONC 32.4 g/dL (31-35); MEAN CORPUSCULAR VOLUME 93.3 fL (81-99); MONOCYTES # (AUTO) 0.5 (0.2-0.8); MONOCYTES % 8.2 % (4.4-11.3); NEUTROPHILS # (AUTO) 3.9 (2.1-6.9); NEUTROPHILS % 65.9 % (38.7-80.0); PLATELET COUNT 213 x10e3/uL (140-360); RED CELL DISTRIBUTION WIDTH 15.9 % (11.7-14.4)
[2019-01-20] MEDS ORDERED: GENTAMICIN 80MG/NS 100 ML 100 ML IV ONE (12:02)
[2019-01-20] MEDS ORDERED: PIPERACILLIN/TAZO 2.25 GM 50 ML IV ONE (12:15)
[2019-01-20 12:56] LABS: ALANINE AMINOTRANSFERASE 9 IU/L (0-55); ALBUMIN 3.6 g/dL (3.5-5.0); ALBUMIN/GLOBULIN RATIO 0.9 (0.8-2.0); ALKALINE PHOSPHATASE 63 IU/L (40-150); ANION GAP 14.1 mmol/L (8-16); BLOOD UREA NITROGEN 15 mg/dL (7-26); BUN/CREATININE RATIO 21 (6-25); CALCIUM 10.3 mg/dL (8.4-10.2); CARBON DIOXIDE 26 mmol/L (22-29); CHLORIDE 103 mmol/L (98-107); CREATININE, SERUM 0.71 mg/dL (0.57-1.11); EST GLOMERULAR FILTRATION RATE > 60 ML/MIN (60-); GLUCOSE 90 mg/dL (74-118); POTASSIUM 4.1 mmol/L (3.5-5.1); SODIUM 139 mmol/L (136-145)
[2019-01-20] MEDS ORDERED: SEVOFLURANE INHAL SOLN 250 ML PEN BTL ONE (15:17)
[2019-01-20] MEDS ORDERED: DEXAMETHASONE SOD PHOS INJ 4 MG/ML VIAL ONE (15:17)
[2019-01-20] MEDS ORDERED: PROPOFOL IV EMULSION 10 MG/ML 20 ML VIAL ONE (15:17)
[2019-01-20] MEDS ORDERED: LIDOCAINE HCL 2% LOCAL INJ 5 ML SDV VIAL INJ ONE (15:17)
[2019-01-20] MEDS ORDERED: ONDANSETRON HCL INJ 2MG/ML 2ML 2 MG/ML VIAL ONE (15:17)
[2019-01-20] MEDS ORDERED: DIPHENHYDRAMINE HCL INJ 50 MG/ML VIAL IM PRN (15:30)
[2019-01-20] MEDS ORDERED: SODIUM CHLORIDE 0.9% 250ML IRRIG IR SCH (15:30)
[2019-01-20] MEDS ORDERED: ONDANSETRON HCL INJ 2MG/ML 2ML 2 MG/ML VIAL IV PRN (15:30)
[2019-01-20] MEDS ORDERED: ACETAMINOPHEN/CODEINE 300MG - 30MG TAB PO PRN (15:30)
[2019-01-20] MEDS ORDERED: FENTANYL CITRATE/PF 100MCG/2 ML INJ ONE (15:33)
[2019-01-20] MEDS ORDERED: MEPERIDINE HCL INJ 25 MG/ML VIAL ONE (15:58)
[2019-01-20] MEDS ORDERED: HYDRALAZINE HCL 20 MG/ML VIAL ONE (16:18)
--- NOTE | 2019-01-20 18:15 | NUR ---
Received patient from PACU. Alert and oriented, respiration even and unlabored without SOB. Indwelling harrison catheter in placed, intact, draining yellow colored urine to bag. Denies pain at this time.
[2019-01-20] MEDS: D5.45%NS/KCL 20MEQ 1,000 ML IV SCH ×2 (18:23→23:18)
[2019-01-20] MEDS: DOCUSATE SODIUM 100 MG CAP PO SCH (18:24)
[2019-01-20] MEDS: PHENAZOPYRIDINE HCL 100 MG TAB PO SCH (18:24)
--- NOTE | 2019-01-20 19:18 | NUR ---
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 Respiration even and unlabored without SOB. Call light in reach.
--- NOTE | 2019-01-20 19:48 | NUR ---
ROUNDS DONE WITH AM NURSE, PATIENT RESTING IN BED, NO COMPLAINTS VOICED. FAMILY AT THE BEDSIDE. WILL CONTINUE TO MONITOR. CALL LIGHT IN REACH.
[2019-01-20 20:00] VITALS: BP 148/69
[2019-01-20] MEDS: PIPERACILLIN/TAZO 2.25 GM 50 ML IV SCH (21:46)
[2019-01-21] VITALS (10 sets, daily range): BP systolic 125–146; BP diastolic 61–75
--- NOTE | 2019-01-21 04:10 | NUR ---
VILLATORO CATHETER FLUSHED, PATIENT TOLERATED WELL.
[2019-01-21] MEDS: D5.45%NS/KCL 20MEQ 1,000 ML IV SCH (05:00)
[2019-01-21] MEDS: PIPERACILLIN/TAZO 2.25 GM 50 ML IV SCH (06:06)
--- NOTE | 2019-01-21 07:17 | NUR ---
ROUNDS DONE WITH AM NURSE, PATIENT CONTINUE RESTING, IV INFUSING, VILLATORO CATHETER REMAIN INTACT. CALL LIGHT IN REACH.
--- NOTE | 2019-01-21 07:30 | NUR ---
Received patient this morning, a/ox2-3, in bed, Mcnair in place draining, IV line in place, no distress, denies any pains, will monitor as call light within reach
[2019-01-21 08:03] LABS: BASOPHILS % 0.3 % (0.0-1.0); EOSINOPHILS % 0.2 % (0.0-6.0); HEMATOCRIT 38.3 % (34.2-44.1); HEMOGLOBIN 12.1 g/dL (12.0-16.0); LYMPHOCYTES # (AUTO) 1.3 (1.0-3.2); LYMPHOCYTES % 12.8 % (18.0-39.1); MEAN CORPUSCULAR HEMOGLOBIN 30.7 pg (28-32); MEAN CORPUSCULAR HGB CONC 31.6 g/dL (31-35); MEAN CORPUSCULAR VOLUME 97.2 fL (81-99); MONOCYTES % 9.9 % (4.4-11.3); NEUTROPHILS % 76.5 % (38.7-80.0); PLATELET COUNT 184 x10e3/uL (140-360); RED BLOOD COUNT 3.94 x10e6/uL (3.6-5.1)
[2019-01-21 08:25] LABS: ANION GAP 8.8 mmol/L (8-16); BLOOD UREA NITROGEN 14 mg/dL (7-26); BUN/CREATININE RATIO 20 (6-25); CALCIUM 9.2 mg/dL (8.4-10.2); CARBON DIOXIDE 27 mmol/L (22-29); CHLORIDE 104 mmol/L (98-107); CREATININE, SERUM 0.69 mg/dL (0.57-1.11); EST GLOMERULAR FILTRATION RATE > 60 ML/MIN (60-); GLUCOSE 102 mg/dL (74-118); POTASSIUM 4.8 mmol/L (3.5-5.1); SODIUM 135 mmol/L (136-145)
[2019-01-21] MEDS: PHENAZOPYRIDINE HCL 100 MG TAB PO SCH ×3 (08:47→17:14)
[2019-01-21] MEDS: DOCUSATE SODIUM 100 MG CAP PO SCH ×2 (08:47→16:52)
--- NOTE | 2019-01-21 12:19 | History and Physical ---
CHIEF COMPLAINT: Bladder infection and confusion. HISTORY OF PRESENT ILLNESS: An 83-year-old white woman, who was sent from a local assisted to [facility] because of confusion and possible urinary tract infection. The patient has a history of right ureteral stent placement in March 2018, because of hydronephrosis and obstructive urolithiasis. Surgery was performed successfully by her urologist, namely, Dr. Jere Ayala. On this admission, she was found to have urinary tract infection. In fact, the preliminary urine cultures reveal gram-negative rods greater than 100,000 colony-forming units/mL urine. On this admission, the patient was found to have a right ureteral stent with hydronephrosis. The patient was taken to the operating room by Dr. Ayala and the right ureteral stent was removed and replaced. This procedure was performed because she did have right hydronephrosis. The patient tolerated the surgery quite well. REVIEW OF SYSTEMS: GENERAL: Weight has been stable. She has been confused lately. No fever or chills. HEENT: No headaches. No visual changes. CARDIOVASCULAR/RESPIRATORY: No chest pain. Slight shortness of breath. She is wearing oxygen. No cough. GI: She had nausea, vomiting, but no diarrhea or constipation. : She has history of right ureteral stent placement in right, obstructive ureterolithiasis. NEUROMUSCULAR: No weakness or numbness. She does have chronic back pain. PAST MEDICAL HISTORY: 1. Mild dementia. 2. Chronic diastolic congestive heart failure. 3. Aortic stenosis. 4. Recurrent urinary tract infections. 5. Right-sided obstructive nephrolithiasis. 6. Hypertensive heart disease. PAST SURGICAL HISTORY: 1. Tonsillectomy. 2. Cholecystectomy. 3. Right ureteral stent placement in March 2018. 4. Right ureteral stent removal and replacement yesterday January 20, 2019. FAMILY HISTORY: Noncontributory. SOCIAL HISTORY: This woman is a . She lives in a assisted. No history of alcohol use. She was a tobacco smoker, but quit in 1989. ALLERGIES: NO KNOWN DRUG ALLERGIES. HOME MEDICATIONS: 1. Acetaminophen with codeine 1 pill daily as needed for pain. 2. Pyridium 1 pill daily as needed for dysuria. 3. Potassium chloride 40 mEq daily. PHYSICAL EXAMINATION: GENERAL: She is awake, alert. She is confused. She is very pleasant on exam. She appeared to be not in any distress. VITAL SIGNS: Blood pressure is 140/80, heart rate is 92, respiratory rate is 16. She is afebrile. Height 5 feet 3.5 inches, weight 140 pounds. INTEGUMENT: Skin is warm and dry. No pallor, jaundice, or diaphoresis. HEENT: PERRLA. Moist mucous membranes. NECK: Supple. CARDIOVASCULAR: Regular rate and rhythm with a faint systolic ejection murmur. LUNGS: No rales. No rhonchi. No wheeze. ABDOMEN: Benign. EXTREMITIES: No edema or deformity. NEUROLOGIC: Intact. DIAGNOSES: 1. Gram-negative vik urinary tract infection. 2. Right-sided hydronephrosis. 3. History of right ureteral stent placement in March 2018. 4. Mild dementia. 5. Aortic stenosis. 6. Chronic diastolic congestive heart failure. 7. Hypertensive heart disease. PLAN: 1. Consult Urology. 2. Follow urine culture. 3. We will discontinue intravenous fluids, as she has heart failure and is experiencing shortness of breath. 4. I will order a chest x-ray. 5. We will continue intravenous antibiotics and follow cultures as previous stated. I spent 50 minutes in the care of this patient. MD PHILIPPE Golden/ENEDINA /[id number]
--- NOTE | 2019-01-21 12:44 | Diagnostic Imaging Report ---
EXAM: ABDOMEN-1VIEW (KUB), DATE: 01/21/2019 9:58 AM INDICATION: Evaluate for residual stones. COMPARISON: . FINDINGS: LINES/TUBES: Double-J right ureteral stent is again observed. No calcific tissues along the course of the stent BOWEL PATTERN: No evidence for obstruction. SOFT TISSUES: Extensive atherosclerotic calcifications. Multiple calcific densities projected on the right upper quadrant, the largest estimated at 1.0 cm. LUNG BASES: Not included BONES: Multilevel degenerative changes of the lumbar spine. Degenerative changes of the hip and SI joints. IMPRESSION: No interval change. Stable position of the right nephroureteral stent. Right nephrolithiasis. Signed by: Dr. Sergio Mccracken M.D. on 01/21/2019 12:40 PM
[2019-01-21] MEDS: MEROPENEM 1GM 100 ML IV SCH ×2 (14:00→21:40)
--- NOTE | 2019-01-21 21:40 | NUR ---
PATIENT RESTING IN BED COMFORTABLY, NO SIGNS OF RESPIRATORY DISTRESS NOTED. PATIENT SHOWING SIGNS OF CONFUSION AND FORGETFULNESS, VILLATORO IS DRAINING AND FLOWING, BLOODY RED IN COLOR NO CLOTS NOTED. BED ALARM IS ON AND IN LOWEST POSITION AND LOCKED, BOTH SIDE RAILS ARE UP, CALL LIGHT WITHIN EASY REACH, WILL CONTINUE TO MONITOR.
--- NOTE | 2019-01-22 00:20 | NUR ---
PATIENT'S BLOOD PRESSURE FROM MIDNIGHT VITALS WAS 177/80. PATIENT SHOWED NO SIGNS OF DISTRESS AND WAS RESTING IN BED. I TOLD PATIENT THAT I WOULD BE GETTING HER MEDICATION FOR THE ELEVATED BLOOD PRESSURE, BUT PATIENT REFUSED AND VOICED THAT SHE WOULD RATHER NOT AND THAT SHE IS ANXIOUS AND FRIGHTENED, AND HER BP RISES WHEN SHE IS, AND DOES NOT WANT TO TAKE BLOOD PRESSURE MEDICATION. CONTINUING TO MONITOR PATIENT IN SITUATION.
[2019-01-22 00:39] VITALS: BP 177/80
[2019-01-22 05:52] VITALS: BP 170/85
[2019-01-22 06:24] LABS: BASOPHILS % 0.5 % (0.0-1.0); EOSINOPHILS # (AUTO) 0.1 (0.0-0.4); EOSINOPHILS % 0.8 % (0.0-6.0); HEMATOCRIT 39.5 % (34.2-44.1); HEMOGLOBIN 12.5 g/dL (12.0-16.0); LYMPHOCYTES % 11.8 % (18.0-39.1); MEAN CORPUSCULAR HEMOGLOBIN 30.2 pg (28-32); MEAN CORPUSCULAR HGB CONC 31.6 g/dL (31-35); MEAN CORPUSCULAR VOLUME 95.4 fL (81-99); MONOCYTES # (AUTO) 0.8 (0.2-0.8); MONOCYTES % 9.3 % (4.4-11.3); NEUTROPHILS # (AUTO) 6.7 (2.1-6.9); NEUTROPHILS % 77.3 % (38.7-80.0); PLATELET COUNT 182 x10e3/uL (140-360); RED BLOOD COUNT 4.14 x10e6/uL (3.6-5.1); RED CELL DISTRIBUTION WIDTH 15.9 % (11.7-14.4)
[2019-01-22] MEDS: MEROPENEM 1GM 100 ML IV SCH ×3 (06:35→21:50)
[2019-01-22 06:42] LABS: ALANINE AMINOTRANSFERASE 7 IU/L (0-55); ALBUMIN 2.7 g/dL (3.5-5.0); ALBUMIN/GLOBULIN RATIO 0.8 (0.8-2.0); ALKALINE PHOSPHATASE 48 IU/L (40-150); ANION GAP 8.7 mmol/L (8-16); BLOOD UREA NITROGEN 11 mg/dL (7-26); BUN/CREATININE RATIO 19 (6-25); CALCIUM 9.3 mg/dL (8.4-10.2); CARBON DIOXIDE 29 mmol/L (22-29); CHLORIDE 105 mmol/L (98-107); CREATININE, SERUM 0.59 mg/dL (0.57-1.11); EST GLOMERULAR FILTRATION RATE > 60 ML/MIN (60-); GLUCOSE 82 mg/dL (74-118); POTASSIUM 3.7 mmol/L (3.5-5.1); SODIUM 139 mmol/L (136-145)
--- NOTE | 2019-01-22 06:50 | NUR ---
PAGED DR. OLIVAREZ, WHO IS COVERING FOR DR. RICO REGARDING THE PATIENT'S ELEVATED BLOOD PRESSURE. PATIENT STILL REFUSES, AWAITING CALL BACK.
[2019-01-22 07:45] VITALS: BP 189/84
[2019-01-22] MEDS: PHENAZOPYRIDINE HCL 100 MG TAB PO SCH ×3 (08:28→17:45)
[2019-01-22] MEDS: DOCUSATE SODIUM 100 MG CAP PO SCH ×2 (08:28→17:45)
--- NOTE | 2019-01-22 08:29 | NUR ---
Lab called with a positive urine culture for ESBL and patient is going to transfer to room 286. Report called to Sergio Segura RN. Patient notified and is ok with move.
--- NOTE | 2019-01-22 08:55 | NUR ---
PATIENT ARRIVED ON THE UNIT AT 0848 FROM [facility] TO ROOM 296. PATIENT IS AWAKE AND IN STABLE CONDITION WITH NO S/S OF RESPIRATORY DISTRESS. PATIENT DENIES PAIN. RIGHT HAND IV IS LEAKING. NEW IV PLACED TO LEFT FOREARM- SALINE LOCKED. VILLATORO IN PLACE AND DRAINING. BED ALARM ON. CALL LIGHT IS WITHIN REACH, PATIENT IS INSTRUCTED TO CALL FOR ASSISTANCE NEEDED.
--- NOTE | 2019-01-22 11:00 | NUR ---
PATIENT'S [id number] IS PRESENT; SPOKE TO THE [id number] AND INFORMED HER ON THE DISCHARGE PLAN TO HAVE THE PATIENT RETURN TO THE [facility] TOMORROW, 01/23/19.
[2019-01-22 12:18] VITALS: BP 140/68
[2019-01-22 16:24] VITALS: BP 137/65
--- NOTE | 2019-01-22 16:37 | NUR ---
VILLATORO REMOVED AT 1635 - DIAPER APPLIED TO PATIENT. VILLATORO OUTPUT 600ML.
--- NOTE | 2019-01-22 19:00 | NUR ---
PATIENT IS IN STABLE CONDITION WITH NO S/S OF RESPIRATORY DISTRESS. NO C/O PAIN. DIAPER APPLIED. BED ALARM ON. CALL LIGHT IS WITHIN REACH OF PATIENT, PATIENT INSTRUCTED TO CALL FOR ASSISTANCE NEEDED. REPORT GIVEN TO ONCOMING NURSE.
[2019-01-22 20:19] VITALS: BP 168/74
--- NOTE | 2019-01-22 21:07 | NUR ---
Dr. Bustos paged regarding patient's elevated BP ( 170/74) with a HR (70). Dr. Carbajal (covering physician for Dr. Bustos ) stated to continue to monitor patient. No new order received.
--- NOTE | 2019-01-22 23:09 | NUR ---
Patient pulled out IV on left arm. New IV inserted in Rt hand 20G. Patient tolerated well.
[2019-01-23 02:57] VITALS: BP 168/74
[2019-01-23] MEDS: MEROPENEM 1GM 100 ML IV SCH (05:54)
[2019-01-23 06:01] VITALS: BP 181/84
--- NOTE | 2019-01-23 06:08 | NUR ---
Dr. Carbajal paged regarding patient's elevated blood pressure (181/81). Awaiting call back.
--- NOTE | 2019-01-23 06:20 | NUR ---
Dr. Carbajal called back with new order for Lisinopril 10 mg now and Lisinopril 10 mg daily for patient's elevated blood pressure ( 193/81) HR (80).
[2019-01-23 06:36] LABS: BASOPHILS # (AUTO) 0.1 (0.0-0.1); BASOPHILS % 0.7 % (0.0-1.0); EOSINOPHILS # (AUTO) 0.1 (0.0-0.4); EOSINOPHILS % 1.8 % (0.0-6.0); HEMATOCRIT 39.6 % (34.2-44.1); HEMOGLOBIN 12.6 g/dL (12.0-16.0); LYMPHOCYTES # (AUTO) 1.6 (1.0-3.2); LYMPHOCYTES % 21.3 % (18.0-39.1); MEAN CORPUSCULAR HEMOGLOBIN 30.6 pg (28-32); MEAN CORPUSCULAR HGB CONC 31.8 g/dL (31-35); MEAN CORPUSCULAR VOLUME 96.1 fL (81-99); MONOCYTES # (AUTO) 0.8 (0.2-0.8); MONOCYTES % 10.9 % (4.4-11.3); NEUTROPHILS # (AUTO) 4.7 (2.1-6.9); NEUTROPHILS % 65.2 % (38.7-80.0); PLATELET COUNT 192 x10e3/uL (140-360); RED BLOOD COUNT 4.12 x10e6/uL (3.6-5.1); RED CELL DISTRIBUTION WIDTH 15.9 % (11.7-14.4)
[2019-01-23 06:44] LABS: ANION GAP 9.8 mmol/L (8-16); BLOOD UREA NITROGEN 12 mg/dL (7-26); BUN/CREATININE RATIO 19 (6-25); CALCIUM 9.3 mg/dL (8.4-10.2); CARBON DIOXIDE 31 mmol/L (22-29); CHLORIDE 105 mmol/L (98-107); CREATININE, SERUM 0.63 mg/dL (0.57-1.11); EST GLOMERULAR FILTRATION RATE > 60 ML/MIN (60-); GLUCOSE 84 mg/dL (74-118); POTASSIUM 3.8 mmol/L (3.5-5.1); SODIUM 142 mmol/L (136-145)
[2019-01-23] MEDS ORDERED: LISINOPRIL 10 MG TAB PO ONE (07:15)
[2019-01-23] MEDS ORDERED: ONDANSETRON HCL 4 MG ORAL DISINTEGRATING TAB PO PRN (07:45)
[2019-01-23 08:00] VITALS: BP 170/83
[2019-01-23 08:06] VITALS: BP 170/83
[2019-01-23] MEDS: DOCUSATE SODIUM 100 MG CAP PO SCH (08:52)
[2019-01-23] MEDS: PHENAZOPYRIDINE HCL 100 MG TAB PO SCH (08:53)
[2019-01-23] MEDS ORDERED: LISINOPRIL 10 MG TAB PO SCH (09:00)
--- NOTE | 2019-01-23 09:19 | NUR ---
EDUCATED ABOUT IMM, SIGNED, FILED IN CHART, WITH COPY LEFT WITH FAMILY AT BEDSIDE.
--- NOTE | 2019-01-23 09:20 | NUR ---
FAXED CLINICALS TO [phone]
--- NOTE | 2019-01-23 09:20 | NUR ---
GOT CHOICE FOR PT TO RETURN TO THE [facility] IN [place] HER FACILITY SHE LIVES AT
--- NOTE | 2019-01-23 09:24 | NUR ---
SPOKE WITH DAUGHTER IN LAW LASHAE VIA PHONE [phone] SHE STATES SHE WANTS HER MOTHER IN LAW TO RETURN TO FACILITY THROUGH [facility] [phone] AND STATES UNDERSTANDS PT WILL RETURN TO FACILITY TODAY
--- NOTE | 2019-01-23 09:37 | NUR ---
COMPLETED [facility] DISCHARGE INFORMATION PATIENT HAS BEEN ACCEPTED TO: NAME: [facility] ADDRESS: [id number] [address] [facility] [id number] ACCEPTING MD: NISA ROOM: 109A NURSE CALL REPORT TO: [phone] IMM SIGNED AND OBTAINED (if applicable): IMM THE FOLLOWING DOCUMENTS MUST ACCOMPANY PATIENT FOR TRANSFER: COPIED CHART: [facility] [phone] PER FAMILY CHOICE AND REQUEST
--- NOTE | 2019-01-23 10:54 | NUR ---
Pt discharge with all personal belongings to the [facility] where she lives. Denies any pain at time of discharge. Report called to Lorie at [facility]. Family is aware of discharge and at the bedside at time of discharge.
--- NOTE | 2019-01-24 01:58 | Discharge Summary ---
HOSPITAL COURSE: Ms. Zurita is an 83-year-old [facility] resident patient, who was transferred from the [facility] with some confusion and probably UTI. She had a right ureteral stent place in March 2018 due to hydronephrosis and urolithiasis. The patient was found to have ureteral stent with hydronephrosis in this admission, so she was taken by Dr. Ayala to the operating room for ureteral stent remove and replace. She was found to have ESBL Klebsiella pneumoniae UTI, to be discharged on p.o. Bactrim. PHYSICAL EXAMINATION: GENERAL: Today, she is awake and alert. VITAL SIGNS: Temperature is 97, blood pressure 170/83. HEART: Regular rate. LUNGS: Clear to auscultation. ABDOMEN: Soft. LABORATORY DATA: On the blood work, white count is 7.26, hemoglobin 12.6, hematocrit 39.6, potassium 3.8, creatinine is 0.63, glucose is 84. Urine culture show ESBL Klebsiella pneumoniae and sensitive to Bactrim. Abdominal x-ray done on showed no interval change and stable position of the right nephroureteral stent, right nephrolithiasis. DISCHARGE DIAGNOSES: 1. Urinary tract infection with extended spectrum beta-lactamase Klebsiella pneumoniae. 2. Right-sided hydronephrosis. 3. Status post removal of previous stent and replacement of a new stent. 4. Mild dementia. 5. Aortic stenosis. 6. Chronic diastolic congestive heart failure. 7. Hypertensive heart disease. PLAN: The plan at present time is to discharge the patient back to the [facility]. She was cleared by Dr. Ayala, so she is going to go to the [facility] to continue all her medications. She is going to be on Bactrim twice a day for 10 days and tramadol every 6 hours p.r.n. for pain. She is to continue all the other medications. She is to call me or come back to the emergency room if any recurrent problems. All these were discussed with the patient. All questions were answered to satisfaction. Please see home medication reconciliation list. MD TIFFANY Elizabeth/ENEDINA /[id number]
== END 2019-01-23 10:54 | DRG 660 ==
LOC: OR 10:54 → PACU V 15:21 → MED/SURG 18:14 → MED/SURG3 01-22 08:46
PROVIDERS: ADMIT Internal Medicine; ATTEND Internal Medicine
PROC: 0TC68ZZ Extirpation of Matter from Right Ureter, Via Natural or Artificial Opening Endoscopic (ICD-10-PCS; 2019-01-20)
PROC: BT1D1ZZ Fluoroscopy of Right Kidney, Ureter and Bladder using Low Osmolar Contrast (ICD-10-PCS; 2019-01-20)
PROC: 0TP98DZ Removal of Intraluminal Device from Ureter, Via Natural or Artificial Opening Endoscopic (ICD-10-PCS; principal; 2019-01-20 12:30)
PROC: 0T768DZ Dilation of Right Ureter with Intraluminal Device, Via Natural or Artificial Opening Endoscopic (ICD-10-PCS; 2019-01-20 12:30)
DX: N13.6 Pyonephrosis (principal); Z16.12 Extended spectrum beta lactamase (ESBL) resistance; I50.32 Chronic diastolic (congestive) heart failure; E87.1 Hypo-osmolality and hyponatremia; N39.0 Urinary tract infection, site not specified; B96.1 Klebsiella pneumoniae [K. pneumoniae] as the cause of diseases classified elsewhere; F03.90 Unspecified dementia, unspecified severity, without behavioral disturbance, psychotic disturbance, mood disturbance, and anxiety; I35.0 Nonrheumatic aortic (valve) stenosis; I11.0 Hypertensive heart disease with heart failure; N81.10 Cystocele, unspecified; N81.6 Rectocele; N95.2 Postmenopausal atrophic vaginitis
CPT/HCPCS: 36415; 51701; 74018; 74420; 80048; 80053; 83970; 84550; 85025; 87086; 87186; 88300; C1766; C2617; J0360; J1100; J1580; J2001; J2175; J2405; J2543; J3010